=== PATIENT | female | born 1980 | race African-American/Black ===

== ENCOUNTER 2017-01-04 15:50 | Emergency (ER) | payer OTHER ==
[~2017-01-04] VITALS: Ht 160 cm; Wt 83.0 kg
--- NOTE | 2017-01-04 16:14 | RAD ---
INDICATION: hand pain for 1 week COMPARISON: None. IMPRESSION: Left hand: 3 views obtained without acute fracture or dislocation. There is some mild degenerative changes seen. Small ossific density is seen adjacent to the first distal interphalangeal joint. This appears well-corticated therefore likely a calcification within the soft tissues or old injury.
[2017-01-04 16:23] VITALS: BP 164/81
[2017-01-04] MEDS ORDERED: NAPR500T3 PO (16:28)
[2017-01-04] MEDS ORDERED: SULF1TAB24 PO (16:28)
--- NOTE | 2017-01-04 16:29 | PHYS DOC ---
Past Medical History Past Medical History: Bronchitis, COPD, Hypertension Past Surgical History: Tubal ligation, Other Additional Past Surgical Histo: CERVIX SURGERY Alcohol Use: Occasionally Drug Use: None Adult General Chief Complaint Chief Complaint: HAND PROBLEM HPI HPI Patient is a 36 year old female presents to the emergency department stating that she's had one week history of left hand pain and discomfort. She states that the pain is rated around the first metacarpal area. She does have some redness and warmth noted. She does have a hardened area noted. Patient is able to move the thumb with increased pain and discomfort. Patient states her immunizations are up-to-date. She states that she has been taking ibuprofen, Advil, Motrin and Aleve with no relief. However she has not taken anything today. Patient states that she's tried to place ice packs on the area and has tried warm Epsom salt and states that she has increased pain and discomfort with anything that touches the hand. Patient states she is right-hand dominant. Review of Systems Review of Systems Constitutional: Denies fever or chills [] Eyes: Denies change in visual acuity, redness, or eye pain [] HENT: Denies nasal congestion or sore throat [] Respiratory: Denies cough or shortness of breath [] Cardiovascular: No additional information not addressed in HPI [] GI: Denies abdominal pain, nausea, vomiting, bloody stools or diarrhea [] : Denies dysuria or hematuria [] Musculoskeletal: Denies back pain. Complaint of left first metacarpal pain and discomfort in Integument: Denies rash or skin lesions [] Neurologic: Denies headache, focal weakness or sensory changes [] Endocrine: Denies polyuria or polydipsia [] Allergies Allergies Allergies Coded Allergies Type Severity Reaction Last Updated Verified No Known Drug Allergies 07/25/13 No Physical Exam Physical Exam Constitutional: Well developed, well nourished, no acute distress, non-toxic appearance. [] HENT: Normocephalic, atraumatic, bilateral external ears normal, oropharynx moist, no oral exudates, nose normal. [] Eyes: PERRLA, EOMI, conjunctiva normal, no discharge. [] Neck: Normal range of motion, no tenderness, supple, no stridor. [] Cardiovascular:Heart rate regular rhythm, no murmur [] Lungs & Thorax: Bilateral breath sounds clear to auscultation [] Skin: Warm, dry, no erythema, no rash. First metacarpal area was noted to have a callus that appears to be red warm and tender. The area appears to be very hard in nature. Patient does have swelling noted on the first metacarpal area. [ ] Back: No tenderness Extremities: Left 1st metacarpal tenderness, no cyanosis, no clubbing, ROM intact, no edema. [] Neurologic: Alert and oriented X 3, normal motor function, normal sensory function, no focal deficits noted. [] Psychologic: Affect normal, judgement normal, mood normal. [] Current Patient Data Vital Signs Vital Signs Date Time Temp Pulse Resp B/P (MAP) Pulse Ox O2 Delivery O2 Flow Rate FiO2 01/04/17 16:23 98.4 76 20 100 Room Air 98.4 EKG EKG [] Radiology/Procedures Radiology/Procedures [facility] [address] [place], [place] [id number] IMAGING REPORT Signed PATIENT: MIKE GALINDO ACCOUNT: [id number] : 1980 LOCATION: ER AGE: 36 SEX: F EXAM STATUS: REG ER ORD. PHYSICIAN: MARITZA LANDIN APRN REASON: hand pain for 1 week PROCEDURE: HAND LEFT 3V INDICATION: hand pain for 1 week COMPARISON: None. IMPRESSION: Left hand: 3 views obtained without acute fracture or dislocation. There is some mild degenerative changes seen. Small ossific density is seen adjacent to the first distal interphalangeal joint. This appears well-corticated therefore likely a calcification within the soft tissues or old injury. DICTATED and SIGNED BY: SHAYY HUGHES MD DATE: 01/04/17 1608 CC: MARITZA LANDIN APRN; KY DO MD; NON,STAFF ~[] Course & Med Decision Making Course & Med Decision Making Pertinent Labs and Imaging studies reviewed. (See chart for details) Patient will be placed on Bactrim 1 tablet twice a day for the next 10 days. Recommended warm Epsom salt soaks to the area. Patient was requesting to have the area bandaged. Explained to patient that if the bandaged. She is to take that off to the warm Epsom salt soaks. However patient also states that she has increased pain and discomfort with anything that touches the hand area. Patient will be recommended to use warm Epsom salt soaks 5 times a day for 20 minutes at a time. She was recommended to follow-up with her primary care physician in next 3-5 days. Patient was encouraged to take naproxen 1 tablet twice a day for pain and discomfort. Also recommended elevation as much as possible. Patient will be discharged home in stable condition signs symptoms to return back to emergency department as been provided. [] Dragon Disclaimer Dragon Disclaimer This electronic medical record was generated, in whole or in part, using a voice recognition dictation system. Departure Departure Impression: Primary Impression: Cellulitis of finger of left hand Disposition: 01 HOME, SELF-CARE Condition: STABLE Referrals: KY DO MD (PCP) Patient Instructions: Cellulitis, [id number] Additional Instructions: Activity as tolerated. Medications as prescribed. Make sure you take all the antibiotics as prescribed. Warm Epsom salt soaks 4-5 times daily for 20 minutes at a time. Elevation as much as possible. Follow-up through primary care physician next 3-5 days. Return back to emergency department sign symptoms become worse. Scripts Naproxen (NAPROXEN) 500 Mg Tablet 1 TAB PO BID, #60 TAB Prov: MARITZA LANDIN APRN 01/04/17 Sulfamethoxazole/Trimethoprim (BACTRIM DS TABLET) 1 Each Tablet 1 TAB PO BID, #20 TAB Prov: MARITZA LANDIN APRN 01/04/17 MARITZA LANDIN APRN Jan 04, 2017 16:29
== END 2017-01-04 16:37 | disposition home or self-care (01) ==
LOC: ER 15:50
DX: L03.012 Cellulitis of left finger (principal); J44.9 Chronic obstructive pulmonary disease, unspecified; I10 Essential (primary) hypertension
CPT/HCPCS: 73130; 99284

== ENCOUNTER 2017-06-15 17:50 | Emergency (ER) | payer OTHER | END 2017-06-15 19:36 | disposition home or self-care (01) | LOC: ER 17:50 | DX: M71.331 Other bursal cyst, right wrist (principal); I10 Essential (primary) hypertension | CPT/HCPCS: 93971; 99284-25 ==

== ENCOUNTER 2019-05-30 11:24 | Inpatient (IN) | payer OTHER ==
[~2019-05-30] VITALS: Ht 162.6 cm; Wt 77.2 kg
[~2019-05-30 11:24] MED LIST: CIPR500T94 PO; HYDR-3164 PO; NAPR-514 PO; SULF1TAB24 PO
[2019-05-30] MEDS ORDERED: CLINDAMYCIN 900MG PREMIX 50 ML IV ONE (12:30)
[2019-05-30] MEDS ORDERED: VANCOMYCIN 1 GM in IV NORMAL SALINE 250ML 250 ML IV SCH (12:45)
[2019-05-30] MEDS ORDERED: KETOROLAC 30 MG/ML VIAL. IVP ONE (12:45)
--- NOTE | 2019-05-30 12:47 | RAD ---
3 view study of the right foot Clinical indications: Right foot pain and swelling. Blistering of the medial heel. FINDINGS: No acute fracture or dislocation or lytic process is seen. There is soft tissue edema of the plantar aspect of the hindfoot and heel with soft tissue air. Soft tissue thickness or skin thickening here measures up to 17 mm. No radiopaque foreign body is evident otherwise. IMPRESSION: No osteomyelitis. Soft tissue thickening and/or skin thickening of the plantar aspect of the hindfoot and heel soft tissue air. Soft tissue air could be secondary to an open wound or infection with gas-forming organisms. No radiopaque foreign body is evident. Electronically signed by: Saurabh Cano MD (05/30/2019 12:44 PM) [facility]
[2019-05-30 13:06] LABS: BASO # 0.1 x10^3/uL (0.0-0.2); BASO % 1 % (0-3); EOS # 0.2 x10^3/uL (0.0-0.7); EOS % 3 % (0-3); HEMATOCRIT 40.6 % (36.0-47.0); LYMPH % 24 % (24-48); MEAN CORPUSCULAR HEMOGLOBIN 34 pg (25-35); MEAN CORPUSCULAR HGB CONC 34 g/dL (31-37); MEAN CORPUSCULAR VOLUME 98 fL (79-100); MONO # 0.9 x10^3/uL (0.0-1.1); MONO % 10 % (0-9); NEUT # 5.1 x10^3/uL (1.8-7.7); NEUT % 62 % (31-73); PLATELET COUNT 261 x10^3/uL (140-400); RED BLOOD COUNT 4.14 x10^6/uL (3.50-5.40); RED CELL DISTRIBUTION WIDTH 13.7 % (11.5-14.5); WHITE BLOOD COUNT 8.3 x10^3/uL (4.0-11.0)
[2019-05-30 13:21] LABS: CALCIUM 9.7 mg/dL (8.5-10.1); CREATININE 0.7 mg/dL (0.6-1.0); GFR 112.1; POTASSIUM 3.6 mmol/L (3.5-5.1)
[2019-05-30 13:27] LABS: ALBUMIN 4.2 g/dL (3.4-5.0); ALBUMIN/GLOBULIN RATIO 1.2 (1.0-1.7); TOTAL BILIRUBIN 0.3 mg/dL (0.2-1.0); TOTAL PROTEIN 7.6 g/dL (6.4-8.2)
--- NOTE | 2019-05-30 13:28 | PHYS DOC ---
Past Medical History Past Medical History: Bronchitis, Hypertension Past Surgical History: Tubal ligation Additional Past Surgical Histo: uterine ablation Alcohol Use: None Drug Use: None Adult General Chief Complaint Chief Complaint: BLISTER/COLD SORE HPI HPI Patient is a 38-year-old female who presents for evaluation of large blister right foot. Onset several weeks ago. She was seen here 10 days ago for plantar blister. Note from this visit has been reviewed. Previous visit to the posterior was unremarkable. Culture was taken. Gram stain showed no white blood cells, gram variable rods. Moderate number. Rare gram- positive cocci were noted on Gram stain. Culture was negative for growth in 36- 48 hours. She was prescribed Cipro as well as trimmed. Finished both antibiotics. She was asked to follow-up with dermatology/podiatry but was not able to do so. She was seen by primary doctor several days ago. States she was prescribed another antibiotic. Medication history shows the patient filled 250 milligrams turbinafine, no additional ATB listed on the pharmacy record. Presents with increasing plantar pain, swelling that extends to the medial aspect of the right foot. No change in footwear. No concerns at this time. Redness along the superior border of this wound. She reports chills but is not measured temperature. No general malaise. No concerns at this time. Review of Systems Review of Systems Constitutional: Denies fever or chills [] Eyes: Denies change in visual acuity, redness, or eye pain [] HENT: Denies nasal congestion or sore throat [] Respiratory: Denies cough or shortness of breath [] Cardiovascular: No additional information not addressed in HPI [] GI: Denies abdominal pain, nausea, vomiting, bloody stools or diarrhea [] : Denies dysuria or hematuria [] Musculoskeletal: Denies back pain or joint pain [] Integument: Denies rash or skin lesions [] Neurologic: Denies headache, focal weakness or sensory changes [] Endocrine: Denies polyuria or polydipsia [] All other systems were reviewed and found to be within normal limits, except as documented in this note. Current Medications Current Medications Current Medications Medications (Trade) Dose Ordered Sig/Tiffanie Start Time Stop Time Status Last Admin Dose Admin Clindamycin Phosphate 50 ml @ 100 mls/hr 1X ONCE 05/30/19 12:30 05/30/19 12:59 DC 05/30/19 13:18 100 MLS/HR Ketorolac Tromethamine (Toradol 30mg Vial) 30 mg 1X ONCE 05/30/19 12:45 05/30/19 12:46 DC 05/30/19 13:17 30 MG Ondansetron HCl (Zofran) 4 mg PRN Q8HRS PRN 05/30/19 14:30 05/31/19 14:29 Vancomycin HCl 1 gm/Sodium Chloride 250 ml @ 250 mls/hr ONCE ONCE 05/30/19 14:15 05/30/19 15:14 Allergies Allergies Allergies Coded Allergies Type Severity Reaction Last Updated Verified naproxen Allergy Unknown Rash 05/20/19 Yes Physical Exam Physical Exam Constitutional: Well developed, well nourished, no acute distress, non-toxic ap pearance. [] HENT: Normocephalic, atraumatic, bilateral external ears normal, oropharynx moist, no oral exudates, nose normal. [] Eyes: PERRLA, EOMI, conjunctiva normal, no discharge. [] Neck: Normal range of motion, no tenderness, supple, no stridor. [] Cardiovascular:Heart rate regular rhythm, no murmur [] Lungs & Thorax: Bilateral breath sounds clear to auscultation [] Abdomen: Bowel sounds normal, soft, no tenderness, no masses, no pulsatile masses. [] Skin: Warm, dry. scaling rash to feet. Back: No tenderness, no CVA tenderness. [] Extremities: R foot with medial to plantar bullous lesion- ~12 cm x 7 cm. mild surrounding erythema. no lymphangitis or regional adenopathy. ttp over and ward rrounding the lesion. no RLE ttp prox to foot. No LLE ttp. nl pulses/sensation. Neurologic: Alert and oriented X 3, normal motor function, normal sensory function, no focal deficits noted. [] Psychologic: Affect normal, judgement normal, mood normal. [] Current Patient Data Vital Signs Vital Signs Date Time Temp Pulse Resp B/P (MAP) Pulse Ox O2 Delivery O2 Flow Rate FiO2 05/30/19 11:58 97.8 92 16 132/70 (90) 100 Room Air 97.8 Lab Values Laboratory Tests Test 05/30/19 12:55 White Blood Count 8.3 x10^3/uL (4.0-11.0) Red Blood Count 4.14 x10^6/uL (3.50-5.40) Hemoglobin 14.0 g/dL (12.0-15.5) Hematocrit 40.6 % (36.0-47.0) Mean Corpuscular Volume 98 fL (79-100) Mean Corpuscular Hemoglobin 34 pg (25-35) Mean Corpuscular Hemoglobin Concent 34 g/dL (31-37) Red Cell Distribution Width 13.7 % (11.5-14.5) Platelet Count 261 x10^3/uL (140-400) Neutrophils (%) (Auto) 62 % (31-73) Lymphocytes (%) (Auto) 24 % (24-48) Monocytes (%) (Auto) 10 % (0-9) H Eosinophils (%) (Auto) 3 % (0-3) Basophils (%) (Auto) 1 % (0-3) Neutrophils # (Auto) 5.1 x10^3/uL (1.8-7.7) Lymphocytes # (Auto) 2.0 x10^3/uL (1.0-4.8) Monocytes # (Auto) 0.9 x10^3/uL (0.0-1.1) Eosinophils # (Auto) 0.2 x10^3/uL (0.0-0.7) Basophils # (Auto) 0.1 x10^3/uL (0.0-0.2) Sodium Level 140 mmol/L (136-145) Potassium Level 3.6 mmol/L (3.5-5.1) Chloride Level 103 mmol/L (98-107) Carbon Dioxide Level 29 mmol/L (21-32) Anion Gap 8 (6-14) Blood Urea Nitrogen 8 mg/dL (7-20) Creatinine 0.7 mg/dL (0.6-1.0) Estimated GFR (Cockcroft-Gault) 112.1 BUN/Creatinine Ratio 11 (6-20) Glucose Level 91 mg/dL (70-99) Calcium Level 9.7 mg/dL (8.5-10.1) Total Bilirubin 0.3 mg/dL (0.2-1.0) Aspartate Amino Transferase (AST) 28 U/L (15-37) Alanine Aminotransferase (ALT) 29 U/L (14-59) Alkaline Phosphatase 73 U/L (46-116) Total Protein 7.6 g/dL (6.4-8.2) Albumin 4.2 g/dL (3.4-5.0) Albumin/Globulin Ratio 1.2 (1.0-1.7) Laboratory Tests 05/30/19 12:55 Laboratory Tests 05/30/19 12:55 EKG EKG [] Radiology/Procedures Radiology/Procedures []Signed PATIENT: MIKE GALINDO ACCOUNT: [id number] : 1980 LOCATION: ER AGE: 38 SEX: F EXAM STATUS: REG ER ORD. PHYSICIAN: BERNARDO FINNEY APRN REASON: pain/swelling, blister to rt medial heel. r/o FB/lytic lesion PROCEDURE: FOOT RIGHT 3V 3 view study of the right foot Clinical indications: Right foot pain and swelling. Blistering of the medial heel. FINDINGS: No acute fracture or dislocation or lytic process is seen. There is soft tissue edema of the plantar aspect of the hindfoot and heel with soft tissue air. Soft tissue thickness or skin thickening here measures up to 17 mm. No radiopaque foreign body is evident otherwise. IMPRESSION: No osteomyelitis. Soft tissue thickening and/or skin thickening of the plantar aspect of the hindfoot and heel soft tissue air. Soft tissue air could be secondary to an open wound or infection with gas-forming organisms. No radiopaque foreign body is evident. Electronically signed by: Alden Cano MD (05/30/2019 12:44 PM) [facility] DICTATED and SIGNED BY: ALDEN CANO MD DATE: 05/30/19 1244 Course & Med Decision Making Course & Med Decision Making Pertinent Labs and Imaging studies reviewed. (See chart for details) []Decrease in pain. Labs reassuring. No signs DVT/Art occlusion. With increasing pain/redness will admit for IV ATB. Discussed case with Dr Romero who accepts patient. No additional requests at this time. Dragon Disclaimer Dragon Disclaimer This electronic medical record was generated, in whole or in part, using a voice recognition dictation system. Departure Departure Impression: Primary Impression: Blister of foot with infection Disposition: ADMITTED INPATIENT Condition: STABLE Referrals: [place] DO MD (PCP) BERNARDO FINNEY APRN May 30, 2019 13:28
[2019-05-30] MEDS ORDERED: VANCOMYCIN 1 GM in IV NORMAL SALINE 250ML 250 ML IV ONE (14:15)
[2019-05-30] MEDS ORDERED: ONDANSETRON PF 4 MG/2 ML VIAL. IV PRN (14:30)
[2019-05-30 16:05] VITALS: BP 147/72
[2019-05-30] MEDS ORDERED: ALBU2.5V8 PO (16:27)
[2019-05-30] MEDS ORDERED: AMLO5TAB10 PO (16:27)
[2019-05-30] MEDS ORDERED: HYDR25TA10 PO (16:27)
[2019-05-30] MEDS ORDERED: LORA10TA3 PO (16:27)
[2019-05-30] MEDS ORDERED: TRAZ-118 PO (16:27)
[2019-05-30] MEDS ORDERED: diphenhydrAMINE HCL 25 MG CAPSULE PO PRN (16:45)
[2019-05-30] MEDS: diphenhydrAMINE HCL 25 MG CAPSULE PO PRN (17:10)
[2019-05-30] MEDS ORDERED: ALBUTEROL SULFATE 2.5 MG/3 ML NEBU. INH PRN (17:30)
[2019-05-30] MEDS ORDERED: HYDROmorphone 2 MG/ML VIAL IV PRN (17:45)
[2019-05-30] MEDS: PIPERACILLIN/TAZOBACTAM 3.375 GM in IV NORMAL SALINE 50ML 50 ML IV SCH (18:30)
[2019-05-30 19:00] VITALS: BP 135/71
--- NOTE | 2019-05-30 21:25 | PDOC1 ---
History and Physical Date of Admission Date of Admission DATE: 05/30/19 TIME: 21:24 Identification/Chief Complaint Chief Complaint SEEN IN ER WITH RIGHT FOOT ERYTHEMA SURROUNDING BLISTER , 38-year-old female who presents for evaluation of large blister right foot. Onset several weeks ago. She was seen here 10 days ago for plantar blister. Past Medical History Psych: No pertinent hx Infectious disease: No pertinent hx ENT: No pertinent hx Dermatology: No pertinent hx Family History Family History: High Cholestrol Social History Smoke: <1 pack per day ALCOHOL: occassional Drugs: None Current Problem List Problem List Problems Medical Problems: (1) Blister of foot with infection Status: Acute Current Medications Current Medications Current Medications Clindamycin Phosphate 50 ml @ 100 mls/hr 1X ONCE IV Last administered on 05/30/19at 13:18; Start 05/30/19 at 12:30; Stop 05/30/19 at 12:59; Status DC Vancomycin HCl 1 gm/Sodium Chloride 250 ml @ 250 mls/hr ONCE IV ; Start 05/30/19 at 12:45; Status Cancel Ketorolac Tromethamine (Toradol 30mg Vial) 30 mg 1X ONCE IVP Last administered on 05/30/19at 13:17; Start 05/30/19 at 12:45; Stop 05/30/19 at 12:46; Status DC Vancomycin HCl 1 gm/Sodium Chloride 250 ml @ 250 mls/hr ONCE ONCE IV Last administered on 05/30/19at 14:35; Start 05/30/19 at 14:15; Stop 05/30/19 at 1 5:14; Status DC Ondansetron HCl (Zofran) 4 mg PRN Q8HRS PRN IV NAUSEA/VOMITING; Start 05/30/19 at 14:30; Stop 05/31/19 at 14:29 Diphenhydramine HCl (Benadryl) 25 mg PRN QHS PRN PO INSOMNIA; Start 05/30/19 at 16:45; Stop 05/30/19 at 16:51; Status DC Diphenhydramine HCl (Benadryl) 25 mg PRN Q6HRS PRN PO ITCHING Last administered on 05/30/19at 17:10; Start 05/30/19 at 17:00 Amlodipine Besylate (Norvasc) 5 mg DAILY PO ; Start 05/31/19 at 09:00 Hydrochlorothiazide (Hydrodiuril) 25 mg DAILY PO ; Start 05/31/19 at 09:00 Trazodone HCl (Desyrel) 50 mg HS PO ; Start 05/30/19 at 21:00 Cetirizine HCl (ZyrTEC) 10 mg DAILY PO ; Start 05/31/19 at 09:00 Albuterol Sulfate (Ventolin Neb Soln) 2 mg PRN BID PRN INH SHORTNESS OF BREATH; Start 05/30/19 at 17:30 Acetaminophen/ Hydrocodone Bitart (Lortab 5/325) 1 tab PRN Q4HRS PRN PO PAIN; Start 05/30/19 at 17:45 Hydromorphone HCl (Dilaudid) 0.5 mg PRN Q4HRS PRN IV PAIN; Start 05/30/19 at 17:45 Piperacillin Sod/ Tazobactam Sod 3.375 gm/Sodium Chloride 50 ml @ 100 mls/hr Q6HRS IV Last administered on 05/30/19at 18:30; Start 05/30/19 at 18:00 Active Scripts Active Reported Trazodone Hcl 50 Mg Tablet 50 Mg PO HS Proair Hfa Inhaler (Albuterol Sulfate) 8.5 Gm Hfa.aer.ad 2 Puff PO PRN BID PRN Amlodipine Besylate 5 Mg Tablet 5 Mg PO DAILY Hydrochlorothiazide 25 Mg Tablet 25 Mg PO DAILY Loratadine 10 Mg Tablet 1 Tab PO DAILY Allergies Allergies: Coded Allergies: naproxen (Verified Allergy, Unknown, Rash, 05/20/19) ROS Review of System Review of Systems Review of Systems Constitutional: Denies fever or chills [] Eyes: Denies change in visual acuity, redness, or eye pain [] HENT: Denies nasal congestion or sore throat [] Respiratory: Denies cough or shortness of breath [] Cardiovascular: No additional information not addressed in HPI [] GI: Denies abdominal pain, nausea, vomiting, bloody stools or diarrhea [] : Denies dysuria or hematuria [] Musculoskeletal: Denies back pain or joint pain [] Integument: FOOT skin lesions [] Neurologic: Denies headache, focal weakness or sensory changes [] Endocrine: Denies polyuria or polydipsia [] 14 PT systems were reviewed and found to be within normal limits, except as documented Musculoskeletal: Yes Gait Disturbance Skin: Yes Skin Lesion Changes Physical Exam Physical Exam Physical Exam Physical Exam Constitutional: Well developed, well nourished, no acute distress, non-toxic appearance. [] HENT: Normocephalic, atraumatic, bilateral external ears normal, oropharynx moist, no oral exudates, nose normal. [] Eyes: PERRLA, EOMI, conjunctiva normal, no discharge. [] Neck: Normal range of motion, no tenderness, supple, no stridor. [] Cardiovascular:Heart rate regular rhythm, no murmur [] Lungs & Thorax: Bilateral breath sounds clear to auscultation [] Abdomen: Bowel sounds normal, soft, no tenderness, no masses, no pulsatile masses. [] Skin: Warm, dry. scaling rash to feet. Back: No tenderness, no CVA tenderness. [] Extremities: R foot with medial to plantar bullous lesion- ~12 cm x 7 cm. mild surrounding erythema. no lymphangitis or regional adenopathy. ttp over and surrounding the lesion. no RLE ttp prox to foot. No LLE ttp. nl pulses/sensation. Neurologic: Alert and oriented X 3, normal motor function, normal sensory function, no focal deficits noted. [] Psychologic: Affect normal, judgement normal, mood normal. [] General: Alert, Oriented X3, Cooperative, No acute distress HEENT: Mucous membr. moist/pink Lungs: Clear to auscultation, Normal air movement Heart: RRR Breasts: Not examined Abdomen: Soft PELVIC: Examination not indicated Extremities: No cyanosis Neuro: Normal speech, Sensation intact, Cranial nerves 3-12 NL Psych/Mental Status: Mental status NL, Mood NL Vitals Vitals Vital Signs Date Time Temp Pulse Resp B/P (MAP) Pulse Ox O2 Delivery O2 Flow Rate FiO2 05/30/19 19:00 98.1 80 16 135/71 (92) 99 Room Air 98.1 Labs Labs Laboratory Tests Test 05/30/19 12:55 White Blood Count 8.3 x10^3/uL (4.0-11.0) Red Blood Count 4.14 x10^6/uL (3.50-5.40) Hemoglobin 14.0 g/dL (12.0-15.5) Hematocrit 40.6 % (36.0-47.0) Mean Corpuscular Volume 98 fL (79-100) Mean Corpuscular Hemoglobin 34 pg (25-35) Mean Corpuscular Hemoglobin Concent 34 g/dL (31-37) Red Cell Distribution Width 13.7 % (11.5-14.5) Platelet Count 261 x10^3/uL (140-400) Neutrophils (%) (Auto) 62 % (31-73) Lymphocytes (%) (Auto) 24 % (24-48) Monocytes (%) (Auto) 10 % (0-9) Eosinophils (%) (Auto) 3 % (0-3) Basophils (%) (Auto) 1 % (0-3) Neutrophils # (Auto) 5.1 x10^3/uL (1.8-7.7) Lymphocytes # (Auto) 2.0 x10^3/uL (1.0-4.8) Monocytes # (Auto) 0.9 x10^3/uL (0.0-1.1) Eosinophils # (Auto) 0.2 x10^3/uL (0.0-0.7) Basophils # (Auto) 0.1 x10^3/uL (0.0-0.2) Sodium Level 140 mmol/L (136-145) Potassium Level 3.6 mmol/L (3.5-5.1) Chloride Level 103 mmol/L (98-107) Carbon Dioxide Level 29 mmol/L (21-32) Anion Gap 8 (6-14) Blood Urea Nitrogen 8 mg/dL (7-20) Creatinine 0.7 mg/dL (0.6-1.0) Estimated GFR (Cockcroft-Gault) 112.1 BUN/Creatinine Ratio 11 (6-20) Glucose Level 91 mg/dL (70-99) Calcium Level 9.7 mg/dL (8.5-10.1) Total Bilirubin 0.3 mg/dL (0.2-1.0) Aspartate Amino Transf (AST/SGOT) 28 U/L (15-37) Alanine Aminotransferase (ALT/SGPT) 29 U/L (14-59) Alkaline Phosphatase 73 U/L (46-116) Total Protein 7.6 g/dL (6.4-8.2) Albumin 4.2 g/dL (3.4-5.0) Albumin/Globulin Ratio 1.2 (1.0-1.7) Laboratory Tests Test 05/30/19 12:55 White Blood Count 8.3 x10^3/uL (4.0-11.0) Red Blood Count 4.14 x10^6/uL (3.50-5.40) Hemoglobin 14.0 g/dL (12.0-15.5) Hematocrit 40.6 % (36.0-47.0) Mean Corpuscular Volume 98 fL (79-100) Mean Corpuscular Hemoglobin 34 pg (25-35) Mean Corpuscular Hemoglobin Concent 34 g/dL (31-37) Red Cell Distribution Width 13.7 % (11.5-14.5) Platelet Count 261 x10^3/uL (140-400) Neutrophils (%) (Auto) 62 % (31-73) Lymphocytes (%) (Auto) 24 % (24-48) Monocytes (%) (Auto) 10 % (0-9) Eosinophils (%) (Auto) 3 % (0-3) Basophils (%) (Auto) 1 % (0-3) Neutrophils # (Auto) 5.1 x10^3/uL (1.8-7.7) Lymphocytes # (Auto) 2.0 x10^3/uL (1.0-4.8) Monocytes # (Auto) 0.9 x10^3/uL (0.0-1.1) Eosinophils # (Auto) 0.2 x10^3/uL (0.0-0.7) Basophils # (Auto) 0.1 x10^3/uL (0.0-0.2) Sodium Level 140 mmol/L (136-145) Potassium Level 3.6 mmol/L (3.5-5.1) Chloride Level 103 mmol/L (98-107) Carbon Dioxide Level 29 mmol/L (21-32) Anion Gap 8 (6-14) Blood Urea Nitrogen 8 mg/dL (7-20) Creatinine 0.7 mg/dL (0.6-1.0) Estimated GFR (Cockcroft-Gault) 112.1 BUN/Creatinine Ratio 11 (6-20) Glucose Level 91 mg/dL (70-99) Calcium Level 9.7 mg/dL (8.5-10.1) Total Bilirubin 0.3 mg/dL (0.2-1.0) Aspartate Amino Transf (AST/SGOT) 28 U/L (15-37) Alanine Aminotransferase (ALT/SGPT) 29 U/L (14-59) Alkaline Phosphatase 73 U/L (46-116) Total Protein 7.6 g/dL (6.4-8.2) Albumin 4.2 g/dL (3.4-5.0) Albumin/Globulin Ratio 1.2 (1.0-1.7) Images Images 3 view study of the right foot Clinical indications: Right foot pain and swelling. Blistering of the medial heel. FINDINGS: No acute fracture or dislocation or lytic process is seen. There is soft tissue edema of the plantar aspect of the hindfoot and heel with soft tissue air. Soft tissue thickness or skin thickening here measures up to 17 mm. No radiopaque foreign body is evident otherwise. IMPRESSION: No osteomyelitis. Soft tissue thickening and/or skin thickening of the plantar aspect of the hindfoot and heel soft tissue air. Soft tissue air could be secondary to an open wound or infection with gas-forming organisms. No radiopaque foreign body is evident. Electronically signed by: Alden Cano MD (05/30/2019 12:44 PM) [place] [id number] DICTATED and SIGNED BY: ALDEN CANO MD VTE Prophylaxis Ordered VTE Prophylaxis Devices: No VTE Pharmacological Prophylaxi: Yes Assessment/Plan Assessment/Plan Impression: LARGE, NONHEALING Blister of RIGHT foot with CELLULITIS Soft tissue thickening and/or skin thickening of the plantar aspect of the hindfoot and heel soft tissue air. Soft tissue air could be secondary to an open wound or infection with gas-forming organisms OBESITY ADMITTED EMPERIC IV ANTIBIOTICS, ROCEPHIN ID CONSULT PODIATRY CONSULT NWB DVT PROPHYLAXIS REBECCA POLK MD May 30, 2019 21:25
[2019-05-30] MEDS ORDERED: ALBUTEROL SULFATE 2.5 MG/3 ML NEBU. NEB PRN (21:45)
[2019-05-30] MEDS ORDERED: guaiFENesin ORAL 200 MG/10 ML LIQUID. PO PRN (21:45)
[2019-05-30] MEDS ORDERED: cloNIDine HCL 0.1 MG TABLET PO PRN (21:45)
[2019-05-30] MEDS ORDERED: SODIUM PHOSPHATES 19/7GM 133 ML ENEMA. PR PRN (21:45)
[2019-05-30] MEDS ORDERED: DOCUSATE SODIUM 100 MG CAPSULE. PO PRN (21:45)
[2019-05-30] MEDS ORDERED: ZOLPIDEM 5 MG TABLET. PO PRN (21:45)
[2019-05-30] MEDS ORDERED: MAG HYDROX/ALUMINUM HYD/SIMETH 30 ML ORAL.SUSP PO PRN (21:45)
[2019-05-30] MEDS ORDERED: 0.9 % SODIUM CHLORIDE 10 ML DISP.SYRIN. IV PRN (21:45)
[2019-05-30] MEDS ORDERED: ACETAMINOPHEN 325 MG TABLET. PO PRN (21:45)
[2019-05-30] MEDS ORDERED: LORazepam 0.5 MG TABLET PO PRN (21:45)
[2019-05-30] MEDS: IV NORMAL SALINE 1000ML BAG 1,000 ML IV SCH (22:07)
[2019-05-30] MEDS: traZODone 50 MG TABLET. PO SCH (22:07)
[2019-05-30 23:00] VITALS: BP 116/53
[2019-05-31] MEDS: PIPERACILLIN/TAZOBACTAM 3.375 GM in IV NORMAL SALINE 50ML 50 ML IV SCH ×5 (00:03→23:24)
[2019-05-31 03:00] VITALS: BP 118/63
[2019-05-31 07:00] VITALS: BP 153/83
[2019-05-31] MEDS: HYDROcodone/APAP 5/325MG 1 TAB TABLET PO PRN ×3 (07:52→21:58)
[2019-05-31] MEDS: diphenhydrAMINE HCL 25 MG CAPSULE PO PRN ×2 (07:54→17:58)
[2019-05-31] MEDS: CETIRIZINE HCL 10 MG TABLET. PO SCH (08:45)
[2019-05-31] MEDS: IV NORMAL SALINE 1000ML BAG 1,000 ML IV SCH ×3 (08:46→23:03)
[2019-05-31] MEDS: hydroCHLOROthiazide 25 MG TABLET PO SCH (08:46)
[2019-05-31] MEDS: amLODIPine BESYLATE 5 MG TABLET PO SCH (08:46)
[2019-05-31] MEDS: ENOXAPARIN 40 MG/0.4 ML SYRINGE. SQ SCH (08:47)
[2019-05-31 11:00] VITALS: BP 143/79
[2019-05-31] MEDS: LINEZOLID 600 MG TABLET PO SCH ×2 (11:08→21:02)
--- NOTE | 2019-05-31 12:03 | PDOC ---
Infectious Disease Note Vital Sign Vital Signs Vital Signs Date Time Temp Pulse Resp B/P (MAP) Pulse Ox O2 Delivery O2 Flow Rate FiO2 05/31/19 08:57 Room Air 05/31/19 08:46 74 153/83 05/31/19 07:00 97.9 18 96 97.9 Labs Lab Laboratory Tests Test 05/30/19 12:55 White Blood Count 8.3 x10^3/uL (4.0-11.0) Red Blood Count 4.14 x10^6/uL (3.50-5.40) Hemoglobin 14.0 g/dL (12.0-15.5) Hematocrit 40.6 % (36.0-47.0) Mean Corpuscular Volume 98 fL (79-100) Mean Corpuscular Hemoglobin 34 pg (25-35) Mean Corpuscular Hemoglobin Concent 34 g/dL (31-37) Red Cell Distribution Width 13.7 % (11.5-14.5) Platelet Count 261 x10^3/uL (140-400) Neutrophils (%) (Auto) 62 % (31-73) Lymphocytes (%) (Auto) 24 % (24-48) Monocytes (%) (Auto) 10 % (0-9) Eosinophils (%) (Auto) 3 % (0-3) Basophils (%) (Auto) 1 % (0-3) Neutrophils # (Auto) 5.1 x10^3/uL (1.8-7.7) Lymphocytes # (Auto) 2.0 x10^3/uL (1.0-4.8) Monocytes # (Auto) 0.9 x10^3/uL (0.0-1.1) Eosinophils # (Auto) 0.2 x10^3/uL (0.0-0.7) Basophils # (Auto) 0.1 x10^3/uL (0.0-0.2) Sodium Level 140 mmol/L (136-145) Potassium Level 3.6 mmol/L (3.5-5.1) Chloride Level 103 mmol/L (98-107) Carbon Dioxide Level 29 mmol/L (21-32) Anion Gap 8 (6-14) Blood Urea Nitrogen 8 mg/dL (7-20) Creatinine 0.7 mg/dL (0.6-1.0) Estimated GFR (Cockcroft-Gault) 112.1 BUN/Creatinine Ratio 11 (6-20) Glucose Level 91 mg/dL (70-99) Calcium Level 9.7 mg/dL (8.5-10.1) Total Bilirubin 0.3 mg/dL (0.2-1.0) Aspartate Amino Transf (AST/SGOT) 28 U/L (15-37) Alanine Aminotransferase (ALT/SGPT) 29 U/L (14-59) Alkaline Phosphatase 73 U/L (46-116) Total Protein 7.6 g/dL (6.4-8.2) Albumin 4.2 g/dL (3.4-5.0) Albumin/Globulin Ratio 1.2 (1.0-1.7) Objective Assessment R foot cellulitis and fluid collection Left foot clear bullous Tinea Generalize skin rash - dry ?psorasis Plan Plan of Care Cont Zosyn Add zyvox/Fluconazole MRI foot Consult Ortho Consult Rheum Check Sed rate/CK/procalcitonin/LEAH F/u labs and cults in am Thank you # [id number] MIKIE MAYFIELD MD May 31, 2019 12:03
[2019-05-31] MEDS: FLUCONAZOLE 100 MG TABLET. PO SCH (12:54)
--- NOTE | 2019-05-31 13:43 | PDOC ---
PROGRESS NOTES Chief Complaint Chief Complaint LARGE, NONHEALING Blister of RIGHT foot with cellulits Soft tissue thickening and/or skin thickening of the plantar aspect of the hindfoot and heel soft tissue air. Soft tissue air could be secondary to an open wound or infection with gas- forming organisms overweight, BMI 29 History of Present Illness History of Present Illness IV abx MRI ID CONSULT PODIATRY CONSULT NWB DVT PROPHYLAXIS Vitals Vitals Vital Signs Date Time Temp Pulse Resp B/P (MAP) Pulse Ox O2 Delivery O2 Flow Rate FiO2 05/31/19 11:00 98.1 68 16 143/79 (100) 100 Room Air 98.1 Physical Exam General: Alert, Oriented X3, Cooperative, No acute distress Heart: Regular rate Lungs: Clear, Wheezing Abdomen: Soft Extremities: No cyanosis Assessment and Plan Assessmemt and Plan Problems Medical Problems: (1) Blister of foot with infection Status: Acute Comment Review of Relevant I have reviewed the following items haley (where applicable) has been applied. Labs Laboratory Tests Test 05/30/19 12:55 White Blood Count 8.3 x10^3/uL (4.0-11.0) Red Blood Count 4.14 x10^6/uL (3.50-5.40) Hemoglobin 14.0 g/dL (12.0-15.5) Hematocrit 40.6 % (36.0-47.0) Mean Corpuscular Volume 98 fL (79-100) Mean Corpuscular Hemoglobin 34 pg (25-35) Mean Corpuscular Hemoglobin Concent 34 g/dL (31-37) Red Cell Distribution Width 13.7 % (11.5-14.5) Platelet Count 261 x10^3/uL (140-400) Neutrophils (%) (Auto) 62 % (31-73) Lymphocytes (%) (Auto) 24 % (24-48) Monocytes (%) (Auto) 10 % (0-9) Eosinophils (%) (Auto) 3 % (0-3) Basophils (%) (Auto) 1 % (0-3) Neutrophils # (Auto) 5.1 x10^3/uL (1.8-7.7) Lymphocytes # (Auto) 2.0 x10^3/uL (1.0-4.8) Monocytes # (Auto) 0.9 x10^3/uL (0.0-1.1) Eosinophils # (Auto) 0.2 x10^3/uL (0.0-0.7) Basophils # (Auto) 0.1 x10^3/uL (0.0-0.2) Sodium Level 140 mmol/L (136-145) Potassium Level 3.6 mmol/L (3.5-5.1) Chloride Level 103 mmol/L (98-107) Carbon Dioxide Level 29 mmol/L (21-32) Anion Gap 8 (6-14) Blood Urea Nitrogen 8 mg/dL (7-20) Creatinine 0.7 mg/dL (0.6-1.0) Estimated GFR (Cockcroft-Gault) 112.1 BUN/Creatinine Ratio 11 (6-20) Glucose Level 91 mg/dL (70-99) Calcium Level 9.7 mg/dL (8.5-10.1) Total Bilirubin 0.3 mg/dL (0.2-1.0) Aspartate Amino Transf (AST/SGOT) 28 U/L (15-37) Alanine Aminotransferase (ALT/SGPT) 29 U/L (14-59) Alkaline Phosphatase 73 U/L (46-116) Total Protein 7.6 g/dL (6.4-8.2) Albumin 4.2 g/dL (3.4-5.0) Albumin/Globulin Ratio 1.2 (1.0-1.7) Medications Current Medications Clindamycin Phosphate 50 ml @ 100 mls/hr 1X ONCE IV Last administered on 05/30/19at 13:18; Start 05/30/19 at 12:30; Stop 05/30/19 at 12:59; Status DC Vancomycin HCl 1 gm/Sodium Chloride 250 ml @ 250 mls/hr ONCE IV ; Start 05/30/19 at 12:45; Status Cancel Ketorolac Tromethamine (Toradol 30mg Vial) 30 mg 1X ONCE IVP Last administered on 05/30/19at 13:17; Start 05/30/19 at 12:45; Stop 05/30/19 at 12:46; Status DC Vancomycin HCl 1 gm/Sodium Chloride 250 ml @ 250 mls/hr ONCE ONCE IV Last administered on 05/30/19at 14:35; Start 05/30/19 at 14:15; Stop 05/30/19 at 15:14; Status DC Ondansetron HCl (Zofran) 4 mg PRN Q8HRS PRN IV NAUSEA/VOMITING; Start 05/30/19 at 14:30; Stop 05/31/19 at 14:29 Diphenhydramine HCl (Benadryl) 25 mg PRN QHS PRN PO INSOMNIA; Start 05/30/19 at 16:45; Stop 05/30/19 at 16:51; Status DC Diphenhydramine HCl (Benadryl) 25 mg PRN Q6HRS PRN PO ITCHING Last administered on 05/31/19 07:54; Start 05/30/19 at 17:00 Amlodipine Besylate (Norvasc) 5 mg DAILY PO Last administered on 05/31/19 08:46; Start 05/31/19 at 09:00 Hydrochlorothiazide (Hydrodiuril) 25 mg DAILY PO Last administered on 05/31/19 08:46; Start 05/31/19 at 09:00 Trazodone HCl (Desyrel) 50 mg HS PO Last administered on 05/30/19at 22:07; Start 05/30/19 at 21:00 Cetirizine HCl (ZyrTEC) 10 mg DAILY PO Last administered on 05/31/19 08:45; Start 05/31/19 at 09:00 Albuterol Sulfate (Ventolin Neb Soln) 2 mg PRN BID PRN INH SHORTNESS OF BREATH; Start 05/30/19 at 17:30 Acetaminophen/ Hydrocodone Bitart (Lortab 5/325) 1 tab PRN Q4HRS PRN PO PAIN Last administered on 05/31/19at 07:52; Start 05/30/19 at 17:45 Hydromorphone HCl (Dilaudid) 0.5 mg PRN Q4HRS PRN IV PAIN; Start 05/30/19 at 17:45 Piperacillin Sod/ Tazobactam Sod 3.375 gm/Sodium Chloride 50 ml @ 100 mls/hr Q6HRS IV Last administered on 05/31/19at 11:09; Start 05/30/19 at 18:00 Sodium Chloride (Normal Saline Flush) 3 ml QSHIFT PRN IV AFTER MEDS AND BLOOD D RAWS; Start 05/30/19 at 21:45 Sodium Chloride 1,000 ml @ 100 mls/hr Q10H IV Last administered on 05/31/19at 08:46; Start 05/30/19 at 21:45 Zolpidem Tartrate (Ambien) 5 mg PRN QHS PRN PO INSOMNIA; Start 05/30/19 at 21:45 Acetaminophen (Tylenol) 650 mg PRN Q4HRS PRN PO TEMP OVER 100.4F OR MILD PAIN; Start 05/30/19 at 21:45 Al Hydroxide/Mg Hydroxide (Mylanta Plus Xs) 30 ml PRN DAILY PRN PO HEARTBURN / GAS; Start 05/30/19 at 21:45 Clonidine HCl (Catapres) 0.1 mg PRN Q6HRS PRN PO SBP>160 OR DBP>90; Start 05/30/19 at 21:45 Sodium Monofluorophosphate (Fleet Adult) 133 ml PRN DAILY PRN OR CONSTIPATION; Start 05/30/19 at 21:45 Docusate Sodium (Colace) 100 mg PRN BID PRN PO CONSTIPATION; Start 05/30/19 at 21:45 Albuterol Sulfate (Ventolin Neb Soln) 2.5 mg PRN Q4HRS PRN NEB SHORTNESS OF BREATH; Start 05/30/19 at 21:45 Guaifenesin (Robitussin) 200 mg PRN Q4HRS PRN PO COUGH; Start 05/30/19 at 21:45 Lorazepam (Ativan) 0.5 mg PRN Q4HRS PRN PO ANXIETY / AGITATION; Start 05/30/19 at 21:45 Enoxaparin Sodium (Lovenox 40mg Syringe) 40 mg DAILY SQ Last administered on 05/31/19at 08:47; Start 05/31/19 at 09:00 Linezolid (Zyvox) 600 mg BID PO Last administered on 05/31/19at 11:08; Start 05/31/19 at 10:00 Fluconazole (Diflucan) 200 mg DAILY PO Last administered on 05/31/19at 12:54; Start 05/31/19 at 12:00 Active Scripts Active Reported Trazodone Hcl 50 Mg Tablet 50 Mg PO HS Proair Hfa Inhaler (Albuterol Sulfate) 8.5 Gm Hfa.aer.ad 2 Puff PO PRN BID PRN Amlodipine Besylate 5 Mg Tablet 5 Mg PO DAILY Hydrochlorothiazide 25 Mg Tablet 25 Mg PO DAILY Loratadine 10 Mg Tablet 1 Tab PO DAILY Vitals/I & O Vital Sign - Last 24 Hours 05/30/19 05/30/19 05/30/19 05/30/19 14:50 15:00 16:05 19:00 Temp 97.7 98.1 97.7 98.1 Pulse 78 80 Resp 18 16 B/P (MAP) 122/67 (85) 147/72 (97) 135/71 (92) Pulse Ox 99 99 O2 Delivery Room Air Room Air Room Air 05/30/19 05/30/19 05/31/19 05/31/19 20:00 23:00 03:00 07:00 Temp 98.4 98.1 97.9 98.4 98.1 97.9 Pulse 71 70 74 Resp 16 14 18 B/P (MAP) 116/53 (74) 118/63 (81) 153/83 (106) Pulse Ox 97 96 96 O2 Delivery Room Air Room Air Room Air Room Air 05/31/19 05/31/19 05/31/19 05/31/19 07:35 07:52 08:46 08:57 Pulse 74 B/P (MAP) 153/83 O2 Delivery Room Air Room Air Room Air 05/31/19 11:00 Temp 98.1 98.1 Pulse 68 Resp 16 B/P (MAP) 143/79 (100) Pulse Ox 100 O2 Delivery Room Air Intake and Output 05/30/19 05/30/19 05/31/19 15:00 23:00 07:00 Intake Total 50 ml 1150 ml 350 ml Output Total 1 ml Balance 50 ml 1149 ml 350 ml MORGAN BRUNSON MD May 31, 2019 13:43
[2019-05-31] MEDS ORDERED: GADOTERATE 7.5 MMOL/15ML VIAL. IVP ONE (14:15)
--- NOTE | 2019-05-31 14:41 | NUR ---
SW following for discharge planning. Chart reviewed, discussed with RN, pt is from home with family. Currently on abx. RN advised no SW needs at this time. SW will continue to follow.
[2019-05-31 15:00] VITALS: BP 152/82
--- NOTE | 2019-05-31 17:00 | RAD ---
MR of the right hindfoot with and without contrast. HISTORY: Infection, heel blister. TECHNIQUE: Routine pre and postcontrast images are obtained. FINDINGS: Large flat superficial lesion identified around the heel and hindfoot, at the skin. Measures about 10 cm AP by 9 cm wide by 1.5 cm maximum thickness. This consists of mostly fluid signal intensity with hyperintense T1 component suggesting hemorrhage or proteinaceous content. There is some signal void with susceptibility artifact within the lesion probably due to air. Margins are well-defined. This does not demonstrate significant enhancement. Mild ill-defined enhancement within the underlying soft tissues which are otherwise intact. Mild ill-defined subcutaneous enhancement also identified within the subcutaneous fat along the medial ankle as is soft tissue edema. No evidence of acute fracture. No aggressive bone destruction. Subtalar joints are patent. Tarsal sinus intact. Subchondral cystic change at the medial talar dome without evidence of an osteochondral unstable lesion. Achilles tendon intact. No evidence of acute plantar fasciitis. The peroneal tendons are intact. Anterior talofibular ligament, calcaneofibular ligament and posterior talofibular ligament are intact. Tibiofibular syndesmotic ligaments are intact. Posterior tibial and flexor tendons are intact. No acute medial ligamentous rupture. Anterior tibial and extensor tendons are intact. IMPRESSION: 1. Large flat superficial collection along the heel and hindfoot, compatible with the diagnosis of a large blister or other nonspecific superficial fluid collection. This does contain a small amount of air which could be due to instrumentation, puncture or infection with gas-forming organism. 2. Mild edema or inflammation within the medial ankle subcutaneous tissues. Electronically signed by: Rodolfo Rubio MD (05/31/2019 4:57 PM) [id number]
[2019-05-31 19:00] VITALS: BP 131/65
[2019-05-31] MEDS: LACTOBACILLUS RHAMNOSUS GG 1 CAPSULE. PO SCH (21:02)
[2019-05-31] MEDS: traZODone 50 MG TABLET. PO SCH (21:02)
--- NOTE | 2019-05-31 21:47 | CONS ---
DATE OF CONSULTATION: 05/31/2019 LOCATION: The patient's room is 440. REQUESTING PHYSICIAN: Dr. Romero. REASON FOR CONSULTATION: Cellulitis of the right foot. HISTORY OF PRESENT ILLNESS: The patient is a 38-year-old female with a past medical history of COPD, hypertension and some bronchitis. She states approximately a week or so prior to Thanksgiving, she noticed two small dots on the medial aspect of her right foot, overnight coalesced into one single area that became very painful. She presented to [facility] Emergency Room on 05/20 with complaints of dry skin, burning and itching in a large blister. The large blister was lanced and she was discharged with both Cipro as well as Bactrim. Cultures were obtained at that time did not grow any bacteria; however, the Gram stain showed some gram-variable rods and gram-positive cocci. Despite the antibiotics, she was seen her primary doctor, who was prescribed terbinafine. Despite that, she developed increasing pain and more swelling in right foot and presented back to the Emergency Room. She denies walking around barefoot, also has developed an area on the medial aspect of her left heel. 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 Denies any pet exposure and no trauma and she has been admitted to the hospital. She was given a dose of vancomycin. Currently, she is on Zosyn. PAST MEDICAL HISTORY: Positive for the hypertension, COPD. PAST SURGICAL HISTORY: Positive for a cervix surgery as well as a tubal ligation. REVIEW OF SYSTEMS: Otherwise negative except for mentioned above. She did have some previous chills and sweats that have improved. ALLERGIES: LISTED NAPROSYN. SOCIAL HISTORY: She is a smoker, no alcohol. Has not traveled outside the [place], has no pets. She has not walked around in bare feet. FAMILY HISTORY: Noncontributory for any skin complications. CURRENT MEDICATIONS: Again, she received clindamycin x 1, vancomycin x 1, Zosyn, Tylenol, albuterol, Norvasc, Zyrtec, Catapres, Lovenox, Colace, dose of Toradol, trazodone. PHYSICAL EXAMINATION: VITAL SIGNS: She is afebrile, temperature 97.9, pulse 74, respirations 18, blood pressure 153/83, satting 96% on room air. CONSTITUTIONAL: She is sitting upright in bed. She is cooperative, in no acute distress. HEENT: Pupils equal and reactive. Normal conjunctivae. Oral cavity, pharynx is clear. NECK: Supple. Good range of motion. LUNGS: Clear to auscultation bilaterally. HEART: S1, S2. ABDOMEN: Soft, nontender, nondistended, no guarding or rebound. EXTREMITIES: No clubbing, cyanosis. She has dry skin with some tinea on both feet. She has a large medial bullous lesion with some surrounding erythema that is a very tender. She also has some darker discoloration on medial aspect of her foot. Her left medial heel has a bulla approximately 2 cm with clear fluid. No erythema there. SKIN: Otherwise, warm to touch. She does have areas of dry skin throughout her body and some patchiness. NEUROLOGIC: She is nonfocal and appropriate. PSYCHIATRIC: Affect is appropriate. LABORATORY DATA: White count was 8.3, hemoglobin 14.4, platelets of 262, neutrophils 62, lymphs are 24. Creatinine 0.7. She had normal liver function study tests. X-rays showed some soft tissue thickening and/or skin thickening of the plantar aspect of the hindfoot and heel soft tissue air and there could be secondary to open wound infection and gas forming organisms. No foreign body was present. IMPRESSION: 1. Right foot cellulitis and fluid collection. 2. Left foot clear bullous lesion. 3. Tinea. 4. Generalized rash that is dry in nature, questionable some psoriasis. RECOMMENDATIONS: Continue the Zosyn. Add some fluconazole. I did review the chart this morning, I added Zyvox. We will obtain MRI of her right foot. Consult orthopedist as well as Rheumatology, check a sedimentation rate, creatinine kinase level, Procalcitonin level, and an LEAH. Follow up labs and cultures in the morning. Thank you for allowing me to participate in the patient's care. Should you have any further questions, please do not hesitate to contact me. MIKIE MAYFIELD MD DR: RELL/marcelo JOB#: [id number] / [id number] LIBRADO
[2019-05-31] MEDS: HYDROCORTISONE 1% TOPICAL OINTMENT 30GM TUBE. TP PRN (21:53)
[2019-05-31 23:00] VITALS: BP 131/72
[2019-06-01 03:00] VITALS: BP 143/78
[2019-06-01] MEDS: PIPERACILLIN/TAZOBACTAM 3.375 GM in IV NORMAL SALINE 50ML 50 ML IV SCH ×3 (06:00→16:42)
[2019-06-01] MEDS: HYDROcodone/APAP 5/325MG 1 TAB TABLET PO PRN ×3 (06:03→19:10)
[2019-06-01] MEDS: HYDROCORTISONE 1% TOPICAL OINTMENT 30GM TUBE. TP PRN ×2 (06:05→08:24)
[2019-06-01 06:24] LABS: BASO % 1 % (0-3); EOS # 0.4 x10^3/uL (0.0-0.7); EOS % 7 % (0-3); HEMATOCRIT 38.8 % (36.0-47.0); LYMPH # 2.8 x10^3/uL (1.0-4.8); LYMPH % 42 % (24-48); MEAN CORPUSCULAR HEMOGLOBIN 33 pg (25-35); MEAN CORPUSCULAR HGB CONC 34 g/dL (31-37); MEAN CORPUSCULAR VOLUME 100 fL (79-100); MONO # 0.6 x10^3/uL (0.0-1.1); MONO % 10 % (0-9); NEUT # 2.6 x10^3/uL (1.8-7.7); NEUT % 41 % (31-73); PLATELET COUNT 255 x10^3/uL (140-400); RED CELL DISTRIBUTION WIDTH 13.4 % (11.5-14.5); WHITE BLOOD COUNT 6.5 x10^3/uL (4.0-11.0)
[2019-06-01 06:39] LABS: CALCIUM 8.9 mg/dL (8.5-10.1); CREATININE 0.7 mg/dL (0.6-1.0); GFR 112.1; POTASSIUM 4.1 mmol/L (3.5-5.1)
[2019-06-01 07:00] VITALS: BP 139/74
[2019-06-01] MEDS: ENOXAPARIN 40 MG/0.4 ML SYRINGE. SQ SCH (08:23)
[2019-06-01] MEDS: CETIRIZINE HCL 10 MG TABLET. PO SCH (08:24)
[2019-06-01] MEDS: LINEZOLID 600 MG TABLET PO SCH ×2 (08:24→21:15)
[2019-06-01] MEDS: LACTOBACILLUS RHAMNOSUS GG 1 CAPSULE. PO SCH ×2 (08:24→21:15)
[2019-06-01] MEDS: hydroCHLOROthiazide 25 MG TABLET PO SCH (08:24)
[2019-06-01] MEDS: FLUCONAZOLE 100 MG TABLET. PO SCH (08:24)
[2019-06-01] MEDS: amLODIPine BESYLATE 5 MG TABLET PO SCH (08:25)
--- NOTE | 2019-06-01 10:10 | PDOC ---
Infectious Disease Note Subjective Subjective Better with less pain but still hurts No F/C/S/N/V/SOA Has some loose stool Once to go home ROS ROS o/w neg Vital Sign Vital Signs Vital Signs Date Time Temp Pulse Resp B/P (MAP) Pulse Ox O2 Delivery O2 Flow Rate FiO2 06/01/19 08:25 79 139/74 06/01/19 07:25 Room Air 06/01/19 07:00 97.7 16 100 97.7 Physical Exam PHYSICAL EXAM CONSTITUTIONAL: She is sitting upright in bed. She is cooperative, in no acute distress. HEENT: Pupils equal and reactive. Normal conjunctivae. Oral cavity, pharynx is clear. NECK: Supple. Good range of motion. LUNGS: Clear to auscultation bilaterally. HEART: S1, S2. ABDOMEN: Soft, nontender, nondistended, no guarding or rebound. EXTREMITIES: No clubbing, cyanosis. She has dry skin with some tinea on both feet. She has a large medial bullous lesion with some surrounding erythema that has improved tenderness. She also has some darker discoloration on medial aspect of her foot. Her left medial heel has a bulla approximately 2 cm with clear fluid. No erythema there. SKIN: Otherwise, warm to touch. She does have areas of dry skin throughout her body and some patchiness. NEUROLOGIC: She is nonfocal and appropriate. PSYCHIATRIC: Affect is appropriate. Labs Lab Laboratory Tests Test 05/31/19 12:45 06/01/19 05:46 Erythrocyte Sedimentation Rate 15 (0-25) Creatine Kinase 88 U/L (26-192) Procalcitonin < 0.10 ng/mL (0.00-0.10) White Blood Count 6.5 x10^3/uL (4.0-11.0) Red Blood Count 3.90 x10^6/uL (3.50-5.40) Hemoglobin 13.0 g/dL (12.0-15.5) Hematocrit 38.8 % (36.0-47.0) Mean Corpuscular Volume 100 fL (79-100) Mean Corpuscular Hemoglobin 33 pg (25-35) Mean Corpuscular Hemoglobin Concent 34 g/dL (31-37) Red Cell Distribution Width 13.4 % (11.5-14.5) Platelet Count 255 x10^3/uL (140-400) Neutrophils (%) (Auto) 41 % (31-73) Lymphocytes (%) (Auto) 42 % (24-48) Monocytes (%) (Auto) 10 % (0-9) Eosinophils (%) (Auto) 7 % (0-3) Basophils (%) (Auto) 1 % (0-3) Neutrophils # (Auto) 2.6 x10^3/uL (1.8-7.7) Lymphocytes # (Auto) 2.8 x10^3/uL (1.0-4.8) Monocytes # (Auto) 0.6 x10^3/uL (0.0-1.1) Eosinophils # (Auto) 0.4 x10^3/uL (0.0-0.7) Basophils # (Auto) 0.0 x10^3/uL (0.0-0.2) Sodium Level 141 mmol/L (136-145) Potassium Level 4.1 mmol/L (3.5-5.1) Chloride Level 105 mmol/L (98-107) Carbon Dioxide Level 25 mmol/L (21-32) Anion Gap 11 (6-14) Blood Urea Nitrogen 4 mg/dL (7-20) Creatinine 0.7 mg/dL (0.6-1.0) Estimated GFR (Cockcroft-Gault) 112.1 Glucose Level 86 mg/dL (70-99) Calcium Level 8.9 mg/dL (8.5-10.1) Micro Microbiology 05/30/19 Blood Culture - Preliminary, Resulted NO GROWTH AFTER 1 DAY Objective Assessment R foot cellulitis improved some and fluid collection MRI with some gas ? sec to previous lancing. Nml Sed rate/CK and Proca - blood cults neg Left foot clear bullous Tinea Generalize skin rash - dry ?psorasis Plan Plan of Care Cont Zosyn/zyvox/Fluconazole Could dc/ home with Augmentin 875 mg po BID, the fluconazole and zyvox (she has medicaid so should be covered) for 7 days if ok with Ortho and f/u next week in ID office Consult Ortho pending Consult Rheum - not available F/u LEAH F/u labs and cults in am MIKIE MAYFIELD MD Jun 01, 2019 10:10
[2019-06-01 11:00] VITALS: BP 136/80
[2019-06-01] MEDS: IV NORMAL SALINE 1000ML BAG 1,000 ML IV SCH ×2 (12:01→23:45)
--- NOTE | 2019-06-01 12:29 | PDOC ---
[employer] PROGRESS NOTE Chief Complaint Chief Complaint Large, nonhealing bullae on plantar aspect of right foot with surrounding area of cellulitis Smaller, bullae on plantar aspect of left foot with surrounding area of cellulitis Bronchitis HTN History of Present Illness History of Present Illness 06/01/19 Pt seen and examined DW pt regarding her care DW RN WADE ID Reviewed pt's chart Vitals/I&O Vitals/I&O: Vital Signs Date Time Temp Pulse Resp B/P (MAP) Pulse Ox O2 Delivery O2 Flow Rate FiO2 06/01/19 11:00 98.1 71 16 136/80 (98) 98 Room Air 98.1 I & O 05/31/19 05/31/19 06/01/19 15:00 23:00 07:00 Intake Total 340 ml 520 ml Balance 340 ml 520 ml Physical Exam General: Alert, Oriented X3, Cooperative, No acute distress Heart: Regular rate, Normal S1, Normal S2 Lungs: Clear, Wheezing Abdomen: Normal bowel sounds, Soft Extremities: No cyanosis, Other (Large medial bullous lesion with some surrounding erythema that has improved tenderness on the right foot. Left medial heel has a bulla approximately 2 cm with clear fluid.) Skin: No rashes Labs Labs: Laboratory Tests Test 05/31/19 12:45 06/01/19 05:46 Erythrocyte Sedimentation Rate 15 (0-25) Creatine Kinase 88 U/L (26-192) Procalcitonin < 0.10 ng/mL (0.00-0.10) White Blood Count 6.5 x10^3/uL (4.0-11.0) Red Blood Count 3.90 x10^6/uL (3.50-5.40) Hemoglobin 13.0 g/dL (12.0-15.5) Hematocrit 38.8 % (36.0-47.0) Mean Corpuscular Volume 100 fL (79-100) Mean Corpuscular Hemoglobin 33 pg (25-35) Mean Corpuscular Hemoglobin Concent 34 g/dL (31-37) Red Cell Distribution Width 13.4 % (11.5-14.5) Platelet Count 255 x10^3/uL (140-400) Neutrophils (%) (Auto) 41 % (31-73) Lymphocytes (%) (Auto) 42 % (24-48) Monocytes (%) (Auto) 10 % (0-9) Eosinophils (%) (Auto) 7 % (0-3) Basophils (%) (Auto) 1 % (0-3) Neutrophils # (Auto) 2.6 x10^3/uL (1.8-7.7) Lymphocytes # (Auto) 2.8 x10^3/uL (1.0-4.8) Monocytes # (Auto) 0.6 x10^3/uL (0.0-1.1) Eosinophils # (Auto) 0.4 x10^3/uL (0.0-0.7) Basophils # (Auto) 0.0 x10^3/uL (0.0-0.2) Sodium Level 141 mmol/L (136-145) Potassium Level 4.1 mmol/L (3.5-5.1) Chloride Level 105 mmol/L (98-107) Carbon Dioxide Level 25 mmol/L (21-32) Anion Gap 11 (6-14) Blood Urea Nitrogen 4 mg/dL (7-20) Creatinine 0.7 mg/dL (0.6-1.0) Estimated GFR (Cockcroft-Gault) 112.1 Glucose Level 86 mg/dL (70-99) Calcium Level 8.9 mg/dL (8.5-10.1) Review of Systems Review of Systems: No c/o headache No c/o SOB Assessment and Plan Assessmemt and Plan Problems Medical Problems: (1) Blister of foot with infection Status: Acute Assessment Large, nonhealing bullae on plantar aspect of right foot with surrounding area of cellulitis Smaller, bullae on plantar aspect of left foot with surrounding area of cellulitis Bronchitis HTN Plan Continue IV Zosyn IVF DVT prophylaxis Labs Home meds Full code Appreciate subspecialist input Comment Review of Relevant I have reviewed the following items haley (where applicable) has been applied. Medications: Current Medications Medications (Trade) Dose Ordered Sig/Tiffanie Route PRN Reason Start Time Stop Time Status Last Admin Dose Admin Gadoterate Meglumine (Dotarem) 15 ml 1X ONCE IVP 05/31/19 14:15 05/31/19 14:16 DC 05/31/19 15:21 Lactobacillus Rhamnosus (Culturelle) 1 cap BID PO 05/31/19 21:00 06/01/19 08:24 Hydrocortisone (Cortaid) 1 ran PRN QID PRN TP pruritis 05/31/19 21:45 06/01/19 08:24 ARAM DUPREE III DO Jun 01, 2019 12:29
--- NOTE | 2019-06-01 12:42 | NUR ---
SW following, chart reviewed, discussed with RN. Pt currently on IV zosyn, zyvox, fluconazole. Per chart, Dr. Rosas has an oral abx discharge plan - labs to be rechecked tomorrow am (06/02/19). LEFTY will continue to follow should any discharge planning needs arise. RN notified.
[2019-06-01 14:52] VITALS: BP 131/82
--- NOTE | 2019-06-01 15:08 | PDOC2 ---
CONSULT Date of Consult Date of Consult DATE: 06/01/19 TIME: 14:39 Reason for Consult Reason for Consult: Right heel bullous lesion Referring Physician Referring Physician: Torres Rosas MD Identification/Chief Complaint Chief Complaint Right heel pain and blister began bottom of heel just before 05/20/19 Problems: (1) Blister of foot with infection Source Source: Patient History of Present Illness Reason for Visit: Patient not aware of injury to LEFT heel/foot had what she thought was a small blister that was painful and limiting ambulation so she went to the ER. This was aspirated and sent to lab with no growth resulting. She however went home and t his became larger and began to cover the inner heel prompting return to the hospital. She was admitted and has been on multiple antibiotics as well as Lamisil. This per her report has lessened the size of the small similar blister occuring on the RIGHT heel. No bacteriological findings on labs done including blood cultures. Normal CBC. Denies similar history. Admits wearing one tennis shoe type that she does not wear socks. Past Medical History Cardiovascular: No pertinent hx Pulmonary: COPD Heme/Onc: No pertinent hx Hepatobiliary: No pertinent hx Psych: No pertinent hx Musculoskeletal: Other Rheumatologic: No pertinent hx Infectious disease: No pertinent hx ENT: No pertinent hx Renal/: No pertinent hx Endocrine: No pertinent hx Dermatology: No pertinent hx Past Surgical History Past Surgical History: No pertinent history Family History Family History: High Cholestrol, Other Social History <1 pack per day ALCOHOL: occassional Drugs: None Current Problem List Problem List Problems Medical Problems: (1) Blister of foot with infection Status: Acute Current Medications Current Medications Current Medications Clindamycin Phosphate 50 ml @ 100 mls/hr 1X ONCE IV Last administered on 05/30/19at 13:18; Start 05/30/19 at 12:30; Stop 05/30/19 at 12:59; Status DC Vancomycin HCl 1 gm/Sodium Chloride 250 ml @ 250 mls/hr ONCE IV ; Start 05/30/19 at 12:45; Status Cancel Ketorolac Tromethamine (Toradol 30mg Vial) 30 mg 1X ONCE IVP Last administered on 05/30/19at 13:17; Start 05/30/19 at 12:45; Stop 05/30/19 at 12:46; Status DC Vancomycin HCl 1 gm/Sodium Chloride 250 ml @ 250 mls/hr ONCE ONCE IV Last administered on 05/30/19at 14:35; Start 05/30/19 at 14:15; Stop 05/30/19 at 15:14; Status DC Ondansetron HCl (Zofran) 4 mg PRN Q8HRS PRN IV NAUSEA/VOMITING; Start 05/30/19 at 14:30; Stop 05/31/19 at 14:29; Status DC Diphenhydramine HCl (Benadryl) 25 mg PRN QHS PRN PO INSOMNIA; Start 05/30/19 at 16:45; Stop 05/30/19 at 16:51; Status DC Diphenhydramine HCl (Benadryl) 25 mg PRN Q6HRS PRN PO ITCHING Last administered on 05/31/19at 17:58; Start 05/30/19 at 17:00 Amlodipine Besylate (Norvasc) 5 mg DAILY PO Last administered on 06/01/19at 08:25; Start 05/31/19 at 09:00 Hydrochlorothiazide (Hydrodiuril) 25 mg DAILY PO Last administered on 06/01/19at 08:24; Start 05/31/19 at 09:00 Trazodone HCl (Desyrel) 50 mg HS PO Last administered on 05/31/19at 21:02; Start 05/30/19 at 21:00 Cetirizine HCl (ZyrTEC) 10 mg DAILY PO Last administered on 06/01/19at 08:24; Start 05/31/19 at 09:00 Albuterol Sulfate (Ventolin Neb Soln) 2 mg PRN BID PRN INH SHORTNESS OF BREATH; Start 05/30/19 at 17:30; Stop 06/01/19 at 10:19; Status DC Acetaminophen/ Hydrocodone Bitart (Lortab 5/325) 1 tab PRN Q4HRS PRN PO PAIN Last administered on 06/01/19at 06:03; Start 05/30/19 at 17:45 Hydromorphone HCl (Dilaudid) 0.5 mg PRN Q4HRS PRN IV PAIN; Start 05/30/19 at 17:45 Piperacillin Sod/ Tazobactam Sod 3.375 gm/Sodium Chloride 50 ml @ 100 mls/hr Q6HRS IV Last administered on 06/01/19at 12:01; Start 05/30/19 at 18:00 Sodium Chloride (Normal Saline Flush) 3 ml QSHIFT PRN IV AFTER MEDS AND BLOOD DRAWS; Start 05/30/19 at 21:45 Sodium Chloride 1,000 ml @ 100 mls/hr Q10H IV Last administered on 06/01/19at 12:01; Start 05/30/19 at 21:45 Zolpidem Tartrate (Ambien) 5 mg PRN QHS PRN PO INSOMNIA; Start 05/30/19 at 21:45 Acetaminophen (Tylenol) 650 mg PRN Q4HRS PRN PO TEMP OVER 100.4F OR MILD PAIN; Start 05/30/19 at 21:45 Al Hydroxide/Mg Hydroxide (Mylanta Plus Xs) 30 ml PRN DAILY PRN PO HEARTBURN / GAS; Start 05/30/19 at 21:45 Clonidine HCl (Catapres) 0.1 mg PRN Q6HRS PRN PO SBP>160 OR DBP>90; Start 05/30/19 at 21:45 Sodium Monofluorophosphate (Fleet Adult) 133 ml PRN DAILY PRN [place] CONSTIPATION; Start 05/30/19 at 21:45 Docusate Sodium (Colace) 100 mg PRN BID PRN PO CONSTIPATION; Start 05/30/19 at 21:45 Albuterol Sulfate (Ventolin Neb Soln) 2.5 mg PRN Q4HRS PRN NEB SHORTNESS OF BREATH; Start 05/30/19 at 21:45 Guaifenesin (Robitussin) 200 mg PRN Q4HRS PRN PO COUGH; Start 05/30/19 at 21:45 Lorazepam (Ativan) 0.5 mg PRN Q4HRS PRN PO ANXIETY / AGITATION; Start 05/30/19 at 21:45 Enoxaparin Sodium (Lovenox 40mg Syringe) 40 mg DAILY SQ Last administered on 05/31/19at 08:47; Start 05/31/19 at 09:00 Linezolid (Zyvox) 600 mg BID PO Last administered on 06/01/19at 08:24; Start 05/31/19 at 10:00 Fluconazole (Diflucan) 200 mg DAILY PO Last administered on 06/01/19at 08:24; Start 05/31/19 at 12:00 Gadoterate Meglumine (Dotarem) 15 ml 1X ONCE IVP Last administered on 05/31/19at 15:21; Start 05/31/19 at 14:15; Stop 05/31/19 at 14:16; Status DC Lactobacillus Rhamnosus (Culturelle) 1 cap BID PO Last administered on 06/01/19at 08:24; Start 05/31/19 at 21:00 Hydrocortisone (Cortaid) 1 ran PRN QID PRN TP pruritis Last administered on 06/01/19at 08:24; Start 05/31/19 at 21:45 Active Scripts Active Reported Trazodone Hcl 50 Mg Tablet 50 Mg PO HS Proair Hfa Inhaler (Albuterol Sulfate) 8.5 Gm Hfa.aer.ad 2 Puff PO PRN BID PRN Amlodipine Besylate 5 Mg Tablet 5 Mg PO DAILY Hydrochlorothiazide 25 Mg Tablet 25 Mg PO DAILY Loratadine 10 Mg Tablet 1 Tab PO DAILY Allergies Allergies: Coded Allergies: naproxen (Verified Allergy, Unknown, Rash, 05/20/19) Physical Exam General: Alert, Oriented X3, Cooperative HEENT: PERRLA, Mucous membr. moist/pink Lungs: Clear to auscultation, Normal air movement Heart: Regular rate Abdomen: Normal bowel sounds, Soft, No tenderness, No hepatosplenomegaly, No masses Extremities: No clubbing, No cyanosis, No edema, Normal pulses Skin: Other (LEFT heel: large bullous lesion plantar to medial to the medial ankle and univolved adjacent dermis is tender, marginal erythema. No induration. RIGHT foot has plaque appearance of the dermis with scaling, no open sores or bleeding. No induration. RIGHT heel has a medial 3 cm blister with minimal fluctuance. Right foot has no erythema, induration or callous formation. Both feet are pruritic. No odor. ) Neuro: Normal speech, Strength at 5/5 X4 ext, Sensation intact (Including both feet. ) Psych/Mental Status: Mental status NL, Mood NL Vitals VITALS Vital Signs Date Time Temp Pulse Resp B/P (MAP) Pulse Ox O2 Delivery O2 Flow Rate FiO2 06/01/19 11:00 98.1 71 16 136/80 (98) 98 Room Air 98.1 Labs Labs Laboratory Tests Test 05/31/19 12:45 06/01/19 05:46 Erythrocyte Sedimentation Rate 15 (0-25) Creatine Kinase 88 U/L (26-192) Procalcitonin < 0.10 ng/mL (0.00-0.10) White Blood Count 6.5 x10^3/uL (4.0-11.0) Red Blood Count 3.90 x10^6/uL (3.50-5.40) Hemoglobin 13.0 g/dL (12.0-15.5) Hematocrit 38.8 % (36.0-47.0) Mean Corpuscular Volume 100 fL (79-100) Mean Corpuscular Hemoglobin 33 pg (25-35) Mean Corpuscular Hemoglobin Concent 34 g/dL (31-37) Red Cell Distribution Width 13.4 % (11.5-14.5) Platelet Count 255 x10^3/uL (140-400) Neutrophils (%) (Auto) 41 % (31-73) Lymphocytes (%) (Auto) 42 % (24-48) Monocytes (%) (Auto) 10 % (0-9) Eosinophils (%) (Auto) 7 % (0-3) Basophils (%) (Auto) 1 % (0-3) Neutrophils # (Auto) 2.6 x10^3/uL (1.8-7.7) Lymphocytes # (Auto) 2.8 x10^3/uL (1.0-4.8) Monocytes # (Auto) 0.6 x10^3/uL (0.0-1.1) Eosinophils # (Auto) 0.4 x10^3/uL (0.0-0.7) Basophils # (Auto) 0.0 x10^3/uL (0.0-0.2) Sodium Level 141 mmol/L (136-145) Potassium Level 4.1 mmol/L (3.5-5.1) Chloride Level 105 mmol/L (98-107) Carbon Dioxide Level 25 mmol/L (21-32) Anion Gap 11 (6-14) Blood Urea Nitrogen 4 mg/dL (7-20) Creatinine 0.7 mg/dL (0.6-1.0) Estimated GFR (Cockcroft-Gault) 112.1 Glucose Level 86 mg/dL (70-99) Calcium Level 8.9 mg/dL (8.5-10.1) Laboratory Tests Test 06/01/19 05:46 White Blood Count 6.5 x10^3/uL (4.0-11.0) Red Blood Count 3.90 x10^6/uL (3.50-5.40) Hemoglobin 13.0 g/dL (12.0-15.5) Hematocrit 38.8 % (36.0-47.0) Mean Corpuscular Volume 100 fL (79-100) Mean Corpuscular Hemoglobin 33 pg (25-35) Mean Corpuscular Hemoglobin Concent 34 g/dL (31-37) Red Cell Distribution Width 13.4 % (11.5-14.5) Platelet Count 255 x10^3/uL (140-400) Neutrophils (%) (Auto) 41 % (31-73) Lymphocytes (%) (Auto) 42 % (24-48) Monocytes (%) (Auto) 10 % (0-9) Eosinophils (%) (Auto) 7 % (0-3) Basophils (%) (Auto) 1 % (0-3) Neutrophils # (Auto) 2.6 x10^3/uL (1.8-7.7) Lymphocytes # (Auto) 2.8 x10^3/uL (1.0-4.8) Monocytes # (Auto) 0.6 x10^3/uL (0.0-1.1) Eosinophils # (Auto) 0.4 x10^3/uL (0.0-0.7) Basophils # (Auto) 0.0 x10^3/uL (0.0-0.2) Sodium Level 141 mmol/L (136-145) Potassium Level 4.1 mmol/L (3.5-5.1) Chloride Level 105 mmol/L (98-107) Carbon Dioxide Level 25 mmol/L (21-32) Anion Gap 11 (6-14) Blood Urea Nitrogen 4 mg/dL (7-20) Creatinine 0.7 mg/dL (0.6-1.0) Estimated GFR (Cockcroft-Gault) 112.1 Glucose Level 86 mg/dL (70-99) Calcium Level 8.9 mg/dL (8.5-10.1) Images Images See MRI LEFT foot showing a subcutaneous fluid collection plantar heel medially. See report for full details. Assessment/Plan Assessment/Plan Remain on current medications. Discuss with surgeon regarding I&D vs conservative management. Proceed with Rheumatology consult with possible plaque psoriasis. ANDREAS CASE Jr. PAC Jun 01, 2019 15:08
[2019-06-01 19:30] VITALS: BP 129/72
[2019-06-01] MEDS: traZODone 50 MG TABLET. PO SCH (21:15)
[2019-06-01 23:26] VITALS: BP 134/74
[2019-06-02] MEDS: HYDROcodone/APAP 5/325MG 1 TAB TABLET PO PRN (01:34)
[2019-06-02 03:16] VITALS: BP 138/74
[2019-06-02] MEDS: PIPERACILLIN/TAZOBACTAM 3.375 GM in IV NORMAL SALINE 50ML 50 ML IV SCH ×4 (06:21→11:34)
[2019-06-02 07:00] VITALS: BP 141/72
[2019-06-02 07:02] LABS: CREATININE 0.8 mg/dL (0.6-1.0); GFR 96.1; POTASSIUM 3.7 mmol/L (3.5-5.1)
[2019-06-02 07:12] LABS: BASO % 1 % (0-3); EOS # 0.4 x10^3/uL (0.0-0.7); EOS % 7 % (0-3); HEMATOCRIT 39.2 % (36.0-47.0); HEMOGLOBIN 13.2 g/dL (12.0-15.5); LYMPH # 2.6 x10^3/uL (1.0-4.8); LYMPH % 46 % (24-48); MEAN CORPUSCULAR HEMOGLOBIN 33 pg (25-35); MEAN CORPUSCULAR HGB CONC 34 g/dL (31-37); MEAN CORPUSCULAR VOLUME 99 fL (79-100); MONO # 0.5 x10^3/uL (0.0-1.1); MONO % 9 % (0-9); NEUT # 2.1 x10^3/uL (1.8-7.7); NEUT % 38 % (31-73); PLATELET COUNT 280 x10^3/uL (140-400); RED BLOOD COUNT 3.97 x10^6/uL (3.50-5.40); RED CELL DISTRIBUTION WIDTH 13.4 % (11.5-14.5); WHITE BLOOD COUNT 5.6 x10^3/uL (4.0-11.0)
[2019-06-02] MEDS ORDERED: IV RINGERS,LACTATED 1000ML 1,000 ML IV SCH (07:55)
[2019-06-02] MEDS ORDERED: fentaNYL PF VIAL 100 MCG/2 ML VIAL IV PRN ×2 (08:00)
[2019-06-02] MEDS ORDERED: HYDROmorphone 2 MG/ML VIAL IV PRN (08:00)
[2019-06-02] MEDS ORDERED: MORPHINE SULFATE 2 MG/ML VIAL. IV PRN (08:00)
[2019-06-02] MEDS ORDERED: PROCHLORPERAZINE 10 MG/2 ML VIAL. IV PRN (08:00)
[2019-06-02] MEDS: FLUCONAZOLE 100 MG TABLET. PO SCH (09:00)
[2019-06-02] MEDS: LACTOBACILLUS RHAMNOSUS GG 1 CAPSULE. PO SCH (09:00)
[2019-06-02] MEDS: CETIRIZINE HCL 10 MG TABLET. PO SCH (09:00)
[2019-06-02] MEDS: ENOXAPARIN 40 MG/0.4 ML SYRINGE. SQ SCH (09:00)
[2019-06-02] MEDS: hydroCHLOROthiazide 25 MG TABLET PO SCH (09:00)
[2019-06-02] MEDS: amLODIPine BESYLATE 5 MG TABLET PO SCH (09:00)
[2019-06-02] MEDS: LINEZOLID 600 MG TABLET PO SCH (09:00)
[2019-06-02] MEDS ORDERED: SEVOFLURANE 31 TO 60 MINUTES. IH ONE (09:13)
[2019-06-02] MEDS ORDERED: PROPOFOL 20 ML IV ONE (09:13)
[2019-06-02] MEDS ORDERED: DEXAMETHASONE SOD PHOS 4 MG/ML VIAL ONE (09:13)
[2019-06-02] MEDS ORDERED: ONDANSETRON PF 4 MG/2 ML VIAL. ONE (09:13)
[2019-06-02] MEDS ORDERED: LIDOCAINE 2% PF 5 ML VIAL. ONE (09:13)
[2019-06-02] MEDS: IV NORMAL SALINE 1000ML BAG 1,000 ML IV SCH (09:45)
--- NOTE | 2019-06-02 10:05 | PDOC ---
PROGRESS NOTES Chief Complaint Chief Complaint Large, nonhealing bullae on plantar aspect of right foot with surrounding area of cellulitis Smaller, bullae on plantar aspect of left foot with surrounding area of cellulitis Bronchitis HTN History of Present Illness History of Present Illness feels better surg today plan for DC soon after cleaned by surg she complains of hunger and NPO x2 DW RN Reviewed pt's chart Vitals Vitals Vital Signs Date Time Temp Pulse Resp B/P (MAP) Pulse Ox O2 Delivery O2 Flow Rate FiO2 06/02/19 09:45 99.0 68 16 154/80 100 Room Air 99.0 Physical Exam General: Alert, Oriented X3, Cooperative Heart: Regular rate Lungs: Clear, Wheezing Abdomen: Normal bowel sounds, Soft, No tenderness, No hepatosplenomegaly, No masses Extremities: No clubbing, No cyanosis, No edema, Normal pulses Skin: Other (LEFT heel: large bullous lesion plantar to medial to the medial ankle and univolved adjacent dermis is tender, marginal erythema. No induration. RIGHT foot has plaque appearance of the dermis with scaling, no open sores or bleeding. No induration. RIGHT heel has a medial 3 cm blister with minimal fluctuance. Right foot has no erythema, induration or callous formation. Both feet are pruritic. No odor. ) Labs LABS Laboratory Tests Test 06/02/19 06:00 White Blood Count 5.6 x10^3/uL (4.0-11.0) Red Blood Count 3.97 x10^6/uL (3.50-5.40) Hemoglobin 13.2 g/dL (12.0-15.5) Hematocrit 39.2 % (36.0-47.0) Mean Corpuscular Volume 99 fL (79-100) Mean Corpuscular Hemoglobin 33 pg (25-35) Mean Corpuscular Hemoglobin Concent 34 g/dL (31-37) Red Cell Distribution Width 13.4 % (11.5-14.5) Platelet Count 280 x10^3/uL (140-400) Neutrophils (%) (Auto) 38 % (31-73) Lymphocytes (%) (Auto) 46 % (24-48) Monocytes (%) (Auto) 9 % (0-9) Eosinophils (%) (Auto) 7 % (0-3) Basophils (%) (Auto) 1 % (0-3) Neutrophils # (Auto) 2.1 x10^3/uL (1.8-7.7) Lymphocytes # (Auto) 2.6 x10^3/uL (1.0-4.8) Monocytes # (Auto) 0.5 x10^3/uL (0.0-1.1) Eosinophils # (Auto) 0.4 x10^3/uL (0.0-0.7) Basophils # (Auto) 0.0 x10^3/uL (0.0-0.2) Sodium Level 140 mmol/L (136-145) Potassium Level 3.7 mmol/L (3.5-5.1) Chloride Level 104 mmol/L (98-107) Carbon Dioxide Level 26 mmol/L (21-32) Anion Gap 10 (6-14) Blood Urea Nitrogen 4 mg/dL (7-20) Creatinine 0.8 mg/dL (0.6-1.0) Estimated GFR (Cockcroft-Gault) 96.1 Glucose Level 90 mg/dL (70-99) Calcium Level 9.0 mg/dL (8.5-10.1) Assessment and Plan Assessmemt and Plan Problems Medical Problems: (1) Blister of foot with infection Status: Acute Comment Review of Relevant I have reviewed the following items haley (where applicable) has been applied. Labs Laboratory Tests Test 05/31/19 12:45 06/01/19 05:46 06/02/19 06:00 Erythrocyte Sedimentation Rate 15 (0-25) Creatine Kinase 88 U/L (26-192) Procalcitonin < 0.10 ng/mL (0.00-0.10) White Blood Count 6.5 x10^3/uL (4.0-11.0) 5.6 x10^3/uL (4.0-11.0) Red Blood Count 3.90 x10^6/uL (3.50-5.40) 3.97 x10^6/uL (3.50-5.40) Hemoglobin 13.0 g/dL (12.0-15.5) 13.2 g/dL (12.0-15.5) Hematocrit 38.8 % (36.0-47.0) 39.2 % (36.0-47.0) Mean Corpuscular Volume 100 fL (79-100) 99 fL (79-100) Mean Corpuscular Hemoglobin 33 pg (25-35) 33 pg (25-35) Mean Corpuscular Hemoglobin Concent 34 g/dL (31-37) 34 g/dL (31-37) Red Cell Distribution Width 13.4 % (11.5-14.5) 13.4 % (11.5-14.5) Platelet Count 255 x10^3/uL (140-400) 280 x10^3/uL (140-400) Neutrophils (%) (Auto) 41 % (31-73) 38 % (31-73) Lymphocytes (%) (Auto) 42 % (24-48) 46 % (24-48) Monocytes (%) (Auto) 10 % (0-9) 9 % (0-9) Eosinophils (%) (Auto) 7 % (0-3) 7 % (0-3) Basophils (%) (Auto) 1 % (0-3) 1 % (0-3) Neutrophils # (Auto) 2.6 x10^3/uL (1.8-7.7) 2.1 x10^3/uL (1.8-7.7) Lymphocytes # (Auto) 2.8 x10^3/uL (1.0-4.8) 2.6 x10^3/uL (1.0-4.8) Monocytes # (Auto) 0.6 x10^3/uL (0.0-1.1) 0.5 x10^3/uL (0.0-1.1) Eosinophils # (Auto) 0.4 x10^3/uL (0.0-0.7) 0.4 x10^3/uL (0.0-0.7) Basophils # (Auto) 0.0 x10^3/uL (0.0-0.2) 0.0 x10^3/uL (0.0-0.2) Sodium Level 141 mmol/L (136-145) 140 mmol/L (136-145) Potassium Level 4.1 mmol/L (3.5-5.1) 3.7 mmol/L (3.5-5.1) Chloride Level 105 mmol/L (98-107) 104 mmol/L (98-107) Carbon Dioxide Level 25 mmol/L (21-32) 26 mmol/L (21-32) Anion Gap 11 (6-14) 10 (6-14) Blood Urea Nitrogen 4 mg/dL (7-20) 4 mg/dL (7-20) Creatinine 0.7 mg/dL (0.6-1.0) 0.8 mg/dL (0.6-1.0) Estimated GFR (Cockcroft-Gault) 112.1 96.1 Glucose Level 86 mg/dL (70-99) 90 mg/dL (70-99) Calcium Level 8.9 mg/dL (8.5-10.1) 9.0 mg/dL (8.5-10.1) Laboratory Tests Test 06/02/19 06:00 White Blood Count 5.6 x10^3/uL (4.0-11.0) Red Blood Count 3.97 x10^6/uL (3.50-5.40) Hemoglobin 13.2 g/dL (12.0-15.5) Hematocrit 39.2 % (36.0-47.0) Mean Corpuscular Volume 99 fL (79-100) Mean Corpuscular Hemoglobin 33 pg (25-35) Mean Corpuscular Hemoglobin Concent 34 g/dL (31-37) Red Cell Distribution Width 13.4 % (11.5-14.5) Platelet Count 280 x10^3/uL (140-400) Neutrophils (%) (Auto) 38 % (31-73) Lymphocytes (%) (Auto) 46 % (24-48) Monocytes (%) (Auto) 9 % (0-9) Eosinophils (%) (Auto) 7 % (0-3) Basophils (%) (Auto) 1 % (0-3) Neutrophils # (Auto) 2.1 x10^3/uL (1.8-7.7) Lymphocytes # (Auto) 2.6 x10^3/uL (1.0-4.8) Monocytes # (Auto) 0.5 x10^3/uL (0.0-1.1) Eosinophils # (Auto) 0.4 x10^3/uL (0.0-0.7) Basophils # (Auto) 0.0 x10^3/uL (0.0-0.2) Sodium Level 140 mmol/L (136-145) Potassium Level 3.7 mmol/L (3.5-5.1) Chloride Level 104 mmol/L (98-107) Carbon Dioxide Level 26 mmol/L (21-32) Anion Gap 10 (6-14) Blood Urea Nitrogen 4 mg/dL (7-20) Creatinine 0.8 mg/dL (0.6-1.0) Estimated GFR (Cockcroft-Gault) 96.1 Glucose Level 90 mg/dL (70-99) Calcium Level 9.0 mg/dL (8.5-10.1) Microbiology 05/30/19 Blood Culture - Preliminary, Resulted NO GROWTH AFTER 2 DAYS Medications Current Medications Clindamycin Phosphate 50 ml @ 100 mls/hr 1X ONCE IV Last administered on 05/30/19at 13:18; Start 05/30/19 at 12:30; Stop 05/30/19 at 12:59; Status DC Vancomycin HCl 1 gm/Sodium Chloride 250 ml @ 250 mls/hr ONCE IV ; Start 05/30/19 at 12:45; Status Cancel Ketorolac Tromethamine (Toradol 30mg Vial) 30 mg 1X ONCE IVP Last administered on 05/30/19at 13:17; Start 05/30/19 at 12:45; Stop 05/30/19 at 12:46; Status DC Vancomycin HCl 1 gm/Sodium Chloride 250 ml @ 250 mls/hr ONCE ONCE IV Last administered on 05/30/19at 14:35; Start 05/30/19 at 14:15; Stop 05/30/19 at 15:14; Status DC Ondansetron HCl (Zofran) 4 mg PRN Q8HRS PRN IV NAUSEA/VOMITING; Start 05/30/19 at 14:30; Stop 05/31/19 at 14:29; Status DC Diphenhydramine HCl (Benadryl) 25 mg PRN QHS PRN PO INSOMNIA; Start 05/30/19 at 16:45; Stop 05/30/19 at 16:51; Status DC Diphenhydramine HCl (Benadryl) 25 mg PRN Q6HRS PRN PO ITCHING Last administered on 05/31/19at 17:58; Start 05/30/19 at 17:00 Amlodipine Besylate (Norvasc) 5 mg DAILY PO Last administered on 06/01/19 08:25; Start 05/31/19 at 09:00 Hydrochlorothiazide (Hydrodiuril) 25 mg DAILY PO Last administered on 06/01/19 08:24; Start 05/31/19 at 09:00 Trazodone HCl (Desyrel) 50 mg HS PO Last administered on 06/01/19 21:15; Start 05/30/19 at 21:00 Cetirizine HCl (ZyrTEC) 10 mg DAILY PO Last administered on 06/01/19 08:24; Start 05/31/19 at 09:00 Albuterol Sulfate (Ventolin Neb Soln) 2 mg PRN BID PRN INH SHORTNESS OF BREATH; Start 05/30/19 at 17:30; Stop 06/01/19 at 10:19; Status DC Acetaminophen/ Hydrocodone Bitart (Lortab 5/325) 1 tab PRN Q4HRS PRN PO PAIN Last administered on 06/02/19at 01:34; Start 05/30/19 at 17:45 Hydromorphone HCl (Dilaudid) 0.5 mg PRN Q4HRS PRN IV PAIN; Start 05/30/19 at 17:45 Piperacillin Sod/ Tazobactam Sod 3.375 gm/Sodium Chloride 50 ml @ 100 mls/hr Q6HRS IV Last administered on 06/02/19at 06:21; Start 05/30/19 at 18:00 Sodium Chloride (Normal Saline Flush) 3 ml QSHIFT PRN IV AFTER MEDS AND BLOOD DRAWS; Start 05/30/19 at 21:45 Sodium Chloride 1,000 ml @ 100 mls/hr Q10H IV Last administered on 06/01/19at 23:45; Start 05/30/19 at 21:45 Zolpidem Tartrate (Ambien) 5 mg PRN QHS PRN PO INSOMNIA; Start 05/30/19 at 21:45 Acetaminophen (Tylenol) 650 mg PRN Q4HRS PRN PO TEMP OVER 100.4F OR MILD PAIN; Start 05/30/19 at 21:45 Al Hydroxide/Mg Hydroxide (Mylanta Plus Xs) 30 ml PRN DAILY PRN PO HEARTBURN / GAS; Start 05/30/19 at 21:45 Clonidine HCl (Catapres) 0.1 mg PRN Q6HRS PRN PO SBP>160 OR DBP>90; Start 05/30/19 at 21:45 Sodium Monofluorophosphate (Fleet Adult) 133 ml PRN DAILY PRN [place] CONSTIPATION; Start 05/30/19 at 21:45 Docusate Sodium (Colace) 100 mg PRN BID PRN PO CONSTIPATION; Start 05/30/19 at 21:45 Albuterol Sulfate (Ventolin Neb Soln) 2.5 mg PRN Q4HRS PRN NEB SHORTNESS OF BREATH; Start 05/30/19 at 21:45 Guaifenesin (Robitussin) 200 mg PRN Q4HRS PRN PO COUGH; Start 05/30/19 at 21:45 Lorazepam (Ativan) 0.5 mg PRN Q4HRS PRN PO ANXIETY / AGITATION; Start 05/30/19 at 21:45 Enoxaparin Sodium (Lovenox 40mg Syringe) 40 mg DAILY SQ Last administered on 05/31/19at 08:47; Start 05/31/19 at 09:00 Linezolid (Zyvox) 600 mg BID PO Last administered on 06/01/19at 21:15; Start 05/31/19 at 10:00 Fluconazole (Diflucan) 200 mg DAILY PO Last administered on 06/01/19at 08:24; Start 05/31/19 at 12:00 Gadoterate Meglumine (Dotarem) 15 ml 1X ONCE IVP Last administered on 05/31/19at 15:21; Start 05/31/19 at 14:15; Stop 05/31/19 at 14:16; Status DC Lactobacillus Rhamnosus (Culturelle) 1 cap BID PO Last administered on 06/01/19at 21:15; Start 05/31/19 at 21:00 Hydrocortisone (Cortaid) 1 ran PRN QID PRN TP pruritis Last administered on 06/01/19at 08:24; Start 05/31/19 at 21:45 Fentanyl Citrate (Fentanyl 2ml Vial) 25 mcg PRN Q5MIN PRN IV MILD PAIN 1-3; Start 06/02/19 at 08:00; Stop 06/02/19 at 20:00 Fentanyl Citrate (Fentanyl 2ml Vial) 50 mcg PRN Q5MIN PRN IV MODERATE TO SEVERE PAIN; Start 06/02/19 at 08:00; Stop 06/02/19 at 20:00 Morphine Sulfate (Morphine Sulfate) 1 mg PRN Q10MIN PRN IV SEVERE PAIN 7-10; Start 06/02/19 at 08:00; Stop 06/02/19 at 20:00 Ringer's Solution 1,000 ml @ 30 mls/hr Q24H IV ; Start 06/02/19 at 07:55; Stop 06/02/19 at 19:54 Hydromorphone HCl (Dilaudid) 0.5 mg PRN Q10MIN PRN IV SEV PAIN, Second choice; Start 06/02/19 at 08:00; Stop 06/02/19 at 20:00 Prochlorperazine Edisylate (Compazine) 5 mg PACU PRN PRN IV NAUSEA, MRX1; Start 06/02/19 at 08:00; Stop 06/02/19 at 20:00 Sevoflurane (Ultane) 30 ml STK-MED ONCE IH ; Start 06/02/19 at 09:13; Stop 06/02/19 at 09:13; Status DC Propofol 20 ml @ As Directed STK-MED ONCE IV ; Start 06/02/19 at 09:13; Stop 06/02/19 at 09:14; Status DC Lidocaine HCl (Lidocaine Pf 2% Vial) 5 ml STK-MED ONCE .ROUTE ; Start 06/02/19 at 09:13; Stop 06/02/19 at 09:14; Status DC Dexamethasone Sodium Phosphate (Decadron) 4 mg STK-MED ONCE .ROUTE ; Start 06/02/19 at 09:13; Stop 06/02/19 at 09:14; Status DC Ondansetron HCl (Zofran) 4 mg STK-MED ONCE .ROUTE ; Start 06/02/19 at 09:13; Stop 06/02/19 at 09:14; Status DC Active Scripts Active Reported Trazodone Hcl 50 Mg Tablet 50 Mg PO HS Proair Hfa Inhaler (Albuterol Sulfate) 8.5 Gm Hfa.aer.ad 2 Puff PO PRN BID PRN Amlodipine Besylate 5 Mg Tablet 5 Mg PO DAILY Hydrochlorothiazide 25 Mg Tablet 25 Mg PO DAILY Loratadine 10 Mg Tablet 1 Tab PO DAILY Vitals/I & O Vital Sign - Last 24 Hours 06/01/19 06/01/19 06/01/1919 11:00 14:39 14:52 15:02 Temp 98.1 98.2 98.1 98.2 Pulse 71 76 Resp 16 20 16 B/P (MAP) 136/80 (98) 131/82 (98) Pulse Ox 98 98 99 O2 Delivery Room Air Room Air Room Air Room Air 06/01/19 06/01/19 06/01/19 06/01/19 15:35 19:10 19:30 20:00 Temp 97.9 97.9 Pulse 69 Resp 20 20 18 B/P (MAP) 129/72 (91) Pulse Ox 99 99 100 O2 Delivery Room Air Room Air Room Air Room Air 06/01/19 06/01/19 06/02/19 06/02/19 20:10 23:26 02:40 03:16 Temp 97.9 97.8 97.9 97.8 Pulse 68 64 Resp 18 18 18 B/P (MAP) 134/74 (94) 138/74 (95) Pulse Ox 100 95 93 93 O2 Delivery Room Air Room Air Room Air Room Air 06/02/19 06/02/19 07:00 09:45 Temp 98.0 99.0 98.0 99.0 Pulse 73 68 Resp 18 16 B/P (MAP) 141/72 (95) 154/80 Pulse Ox 100 100 O2 Delivery Room Air Room Air Intake and Output 06/01/19 06/01/19 06/02/19 15:00 23:00 07:00 Intake Total 360 ml 240 ml Output Total 250 ml Balance 110 ml 240 ml MORGAN BRUNSON MD Jun 02, 2019 10:05
[2019-06-02] MEDS ORDERED: fentaNYL PF VIAL 100 MCG/2 ML VIAL ONE (10:13)
[2019-06-02] MEDS ORDERED: SEVOFLURANE 16 TO 30 MINUTES. IH ONE (10:40)
[2019-06-02 11:00] VITALS: BP 137/92
[2019-06-02 11:10] VITALS: BP 155/77
--- NOTE | 2019-06-02 12:17 | PDOC ---
Infectious Disease Note Subjective: Subjective Pt just returned from surgery this am on RT Foot Postop pain is under control No F/C/S/N/V/SOA/D Vital Signs: Vital Signs Vital Signs Date Time Temp Pulse Resp B/P (MAP) Pulse Ox O2 Delivery O2 Flow Rate FiO2 06/02/19 11:10 97.7 74 20 155/77 100 Room Air 97.7 06/02/19 10:55 8 Physical Exam: PHYSICAL EXAM CONSTITUTIONAL: She is sitting upright in bed. She is cooperative, in no acute distress. HEENT: Pupils equal and reactive. Normal conjunctivae. Oral cavity, pharynx is clear. NECK: Supple. LUNGS: Clear bilaterally. HEART: S1, S2. ABDOMEN: Soft, nontender, nondistended, no guarding or rebound. EXTREMITIES: No clubbing, cyanosis.Both foot dressing in place, dry intact, not taken down SKIN: Otherwise, warm to touch. She does have areas of dry skin throughout her body and some patchiness. NEUROLOGIC: She is nonfocal and appropriate. PSYCHIATRIC: Affect is appropriate. PIV looks ok Medications: Inpatient Meds: Current Medications Medications (Trade) Dose Ordered Sig/Tiffanie Start Time Stop Time Status Last Admin Dose Admin Acetaminophen (Tylenol) 650 mg PRN Q4HRS PRN 05/30/19 21:45 Acetaminophen/ Hydrocodone Bitart (Lortab 5/325) 1 tab PRN Q4HRS PRN 05/30/19 17:45 06/02/19 01:34 1 TAB Al Hydroxide/Mg Hydroxide (Mylanta Plus Xs) 30 ml PRN DAILY PRN 05/30/19 21:45 Albuterol Sulfate (Ventolin Neb Soln) 2.5 mg PRN Q4HRS PRN 05/30/19 21:45 Amlodipine Besylate (Norvasc) 5 mg DAILY 05/31/19 09:00 06/01/19 08:25 5 MG Cetirizine HCl (ZyrTEC) 10 mg DAILY 05/31/19 09:00 06/01/19 08:24 10 MG Clindamycin Phosphate 50 ml @ 100 mls/hr 1X ONCE 05/30/19 12:30 05/30/19 12:59 DC 05/30/19 13:18 100 MLS/HR Clonidine HCl (Catapres) 0.1 mg PRN Q6HRS PRN 05/30/19 21:45 Dexamethasone Sodium Phosphate (Decadron) 4 mg STK-MED ONCE 06/02/19 09:13 06/02/19 09:14 DC Diphenhydramine HCl (Benadryl) 25 mg PRN Q6HRS PRN 05/30/19 17:00 05/31/19 17:58 25 MG Docusate Sodium (Colace) 100 mg PRN BID PRN 05/30/19 21:45 Enoxaparin Sodium (Lovenox 40mg Syringe) 40 mg DAILY 05/31/19 09:00 05/31/19 08:47 40 MG Fentanyl Citrate (Fentanyl 2ml Vial) 100 mcg STK-MED ONCE 06/02/19 10:13 06/02/19 10:13 DC Fluconazole (Diflucan) 200 mg DAILY 05/31/19 12:00 06/01/19 08:24 200 MG Gadoterate Meglumine (Dotarem) 15 ml 1X ONCE 05/31/19 14:15 05/31/19 14:16 DC 05/31/19 15:21 15 ML Guaifenesin (Robitussin) 200 mg PRN Q4HRS PRN 05/30/19 21:45 Hydrochlorothiazide (Hydrodiuril) 25 mg DAILY 05/31/19 09:00 06/01/19 08:24 25 MG Hydrocortisone (Cortaid) 1 ran PRN QID PRN 05/31/19 21:45 06/01/19 08:24 1 RAN Hydromorphone HCl (Dilaudid) 0.5 mg PRN Q10MIN PRN 06/02/19 08:00 06/02/19 20:00 Ketorolac Tromethamine (Toradol 30mg Vial) 30 mg 1X ONCE 05/30/19 12:45 05/30/19 12:46 DC 05/30/19 13:17 30 MG Lactobacillus Rhamnosus (Culturelle) 1 cap BID 05/31/19 21:00 06/01/19 21:15 1 CAP Lidocaine HCl (Lidocaine Pf 2% Vial) 5 ml STK-MED ONCE 06/02/19 09:13 06/02/19 09:14 DC Linezolid (Zyvox) 600 mg BID 05/31/19 10:00 06/01/19 21:15 600 MG Lorazepam (Ativan) 0.5 mg PRN Q4HRS PRN 05/30/19 21:45 Morphine Sulfate (Morphine Sulfate) 1 mg PRN Q10MIN PRN 06/02/19 08:00 06/02/19 20:00 Ondansetron HCl (Zofran) 4 mg STK-MED ONCE 06/02/19 09:13 06/02/19 09:14 DC Piperacillin Sod/ Tazobactam Sod 3.375 gm/Sodium Chloride 50 ml @ 100 mls/hr Q6HRS 05/30/19 18:00 06/02/19 11:34 100 MLS/HR Prochlorperazine Edisylate (Compazine) 5 mg PACU PRN PRN 06/02/19 08:00 06/02/19 20:00 Propofol 20 ml @ As Directed STK-MED ONCE 06/02/19 09:13 06/02/19 09:14 DC Ringer's Solution 1,000 ml @ 30 mls/hr Q24H 06/02/19 07:55 06/02/19 19:54 Sevoflurane (Ultane) 15 ml STK-MED ONCE 06/02/19 10:40 06/02/19 10:40 DC Sodium Monofluorophosphate (Fleet Adult) 133 ml PRN DAILY PRN 05/30/19 21:45 Sodium Chloride 1,000 ml @ 100 mls/hr Q10H 05/30/19 21:45 06/01/19 23:45 100 MLS/HR Sodium Chloride (Normal Saline Flush) 3 ml QSHIFT PRN 05/30/19 21:45 Trazodone HCl (Desyrel) 50 mg HS 05/30/19 21:00 06/01/19 21:15 50 MG Vancomycin HCl 1 gm/Sodium Chloride 250 ml @ 250 mls/hr ONCE ONCE 05/30/19 14:15 05/30/19 15:14 DC 05/30/19 14:35 250 MLS/HR Zolpidem Tartrate (Ambien) 5 mg PRN QHS PRN 05/30/19 21:45 Labs: Lab Laboratory Tests Test 06/02/19 06:00 White Blood Count 5.6 x10^3/uL (4.0-11.0) Red Blood Count 3.97 x10^6/uL (3.50-5.40) Hemoglobin 13.2 g/dL (12.0-15.5) Hematocrit 39.2 % (36.0-47.0) Mean Corpuscular Volume 99 fL (79-100) Mean Corpuscular Hemoglobin 33 pg (25-35) Mean Corpuscular Hemoglobin Concent 34 g/dL (31-37) Red Cell Distribution Width 13.4 % (11.5-14.5) Platelet Count 280 x10^3/uL (140-400) Neutrophils (%) (Auto) 38 % (31-73) Lymphocytes (%) (Auto) 46 % (24-48) Monocytes (%) (Auto) 9 % (0-9) Eosinophils (%) (Auto) 7 % (0-3) Basophils (%) (Auto) 1 % (0-3) Neutrophils # (Auto) 2.1 x10^3/uL (1.8-7.7) Lymphocytes # (Auto) 2.6 x10^3/uL (1.0-4.8) Monocytes # (Auto) 0.5 x10^3/uL (0.0-1.1) Eosinophils # (Auto) 0.4 x10^3/uL (0.0-0.7) Basophils # (Auto) 0.0 x10^3/uL (0.0-0.2) Sodium Level 140 mmol/L (136-145) Potassium Level 3.7 mmol/L (3.5-5.1) Chloride Level 104 mmol/L (98-107) Carbon Dioxide Level 26 mmol/L (21-32) Anion Gap 10 (6-14) Blood Urea Nitrogen 4 mg/dL (7-20) Creatinine 0.8 mg/dL (0.6-1.0) Estimated GFR (Cockcroft-Gault) 96.1 Glucose Level 90 mg/dL (70-99) Calcium Level 9.0 mg/dL (8.5-10.1) Objective: Assessment: R foot cellulitis improved some and fluid collection MRI with some gas ? sec to previous lancing. Nml Sed rate/CK and Proca - blood cults neg s/p surgery early this am Left foot clear bullous Tinea Generalize skin rash - dry ?psorasis Plan: Plan of Care Cont Zosyn/zyvox/Fluconazole Could dc/ home with Augmentin 875 mg po BID, the fluconazole and zyvox (she has medicaid so should be covered) for 7 days if ok with Ortho and f/u next week in ID office Consult Ortho pending Consult Rheum - not available F/u LEAH F/u labs and cults in am DEANDRA RUIZ MD Jun 02, 2019 12:17
--- NOTE | 2019-06-02 13:47 | PDOC4 ---
Operative Note Operative Note Date of Procedure: June 02, 2019 Pre-Op Diagnosis: 1.Blister, non-thermal, right foot, initial encounter S90.821A 2.Blister, nonthermal, left foot, initial encounter S90.822A Post-Op Diagnosis: 1.Blister, non-thermal, right foot, initial encounter S90.821A 2.Blister, nonthermal, left foot, initial encounter S90.822A Procedure: 1.Incision and drainage of abscess, infected blister right foot, CPT 44553 2.Incision and drainage of abscess, simple, left foot, CPT 90116 Surgeon: Mary Tay MD Anesthesia: General EBL: minimal Specimens Obtained: Right foot blister fluid for Gram stain, culture aerobic and anaerobic, sent in specimen cup Complications: none Drains: none Findings: The blister on the right foot was filled with pus and was foul- smelling. This was sent for Gram stain and cultures. The left foot blister appears to have typical serous fluid and is much smaller. Indications for Procedure: This patient is a 39-year-old woman who presents with blisters on both feet of unknown etiology. The right foot is severely painful, she has difficulty walking, and there is a massive blister covering the medial aspect of the heel, the medial foot, wrapping around the posterior aspect of the foot and to the lateral calcaneus area. It is fluctuant and tender but there is no drainage. The left foot has approximately 3 x 3 cm blister, also tender, but does not appear as severe. Procedure in Detail: The patient was identified in the preoperative holding area. Both feet were marked by me. The patient was taken to the operating room where general anesthetic was used. The patient was positioned supine on the hospital bed. Both legs were prepared with surgical prep solution and sterile drapes were applied. No tourniquets were used. The patient remains on scheduled antibiotics so no addtional antibiotics were given. A timeout procedure was performed. The right foot blister was approached first. I aspirated this under sterile technique, and retrieved 10 mL of pus which was sent in a specimen cup for cu lture and Gram stain. I then unroofed the blister with a rongeurs, and there was copious purulent drainage. This is foul-smelling. I unroofed the remainder of the blister using the rongeurs, and did excisional debridement with a 10 blade scalpel of the skin. There was no need for further debridement as the underlying dermis appears intact other than a few areas where there is a slight amount of bleeding. Digital and visual exploration shows no evidence of septic joint or penetration to any deeper structures. I suspect this started as a serous fluid- filled blister and became secondarily infected. The left foot was approached next, and simply unroofed and the serous fluid was drained. This left side was not cultured. I then placed sterile dressings. On the right foot Xeroform and a bulky sterile dressing was applied. On the left side a smaller dressing was used. Needle and sponge counts were correct. There were no apparent complications. The patient returned to the recovery room in stable condition. Needle and sponge counts were correct. MARY TYA MD Jun 02, 2019 13:47
[2019-06-02] MEDS ORDERED: Fluconazole PO (14:26)
[2019-06-02] MEDS ORDERED: LINE600T12 PO (14:26)
[2019-06-02] MEDS ORDERED: AMOX1TAB61 PO (14:27)
[2019-06-04 19:09] LABS: ANA INTERP Negative (.)
== END 2019-06-02 15:30 | disposition home or self-care (01) | DRG 603 ==
LOC: ER 11:24 → OBSVTOIN 14:20 → 4 NORTH 14:20
PROVIDERS: ADMIT Family Medicine; ATTEND Family Medicine
PROC: 0H9NXZZ Drainage of Left Foot Skin, External Approach (ICD-10-PCS; 2019-06-02)
PROC: 0HBNXZZ Excision of Left Foot Skin, External Approach (ICD-10-PCS; principal; 2019-06-02 11:00)
DX: L03.115 Cellulitis of right lower limb (principal); B35.9 Dermatophytosis, unspecified; B00.1 Herpesviral vesicular dermatitis; F17.210 Nicotine dependence, cigarettes, uncomplicated; I10 Essential (primary) hypertension; J44.9 Chronic obstructive pulmonary disease, unspecified; L03.116 Cellulitis of left lower limb; S90.821A Blister (nonthermal), right foot, initial encounter; S90.822A Blister (nonthermal), left foot, initial encounter; Z98.51 Tubal ligation status
CPT/HCPCS: 36415; 73630; 73720; 80048; 80053; 82550; 84145; 85025; 85651; 86038; 87040; 87071; 87075; A9575; J1100; J1650; J1885; J2001; J2405; J2543; J2704; J3010; J3370; J3490; J7030; J7050; Q0163; G0378